=== PATIENT | female | born 1935 | race Caucasian/White ===

== ENCOUNTER → 2017-07-31 10:10 | Outpatient (CLI) | payer MEDICARE, OTHER, SELFPAY ==
--- NOTE | 2017-07-31 | DI.MG.S_ITS ---
BILATERAL DIGITAL SCREENING MAMMOGRAM 3D/2D WITH CAD POST LUMPECTOMY: 07/31/2017 CLINICAL: Routine screening. Personal history of left breast cancer. Comparison is made to exams dated: 07/30/2016 mammogram, 08/02/2015 mammogram, and 08/02/2015 mammogram - [facility]. There are scattered fibroglandular elements in both breasts. Current study was also evaluated with a Computer Aided Detection (CAD) system. There are benign vascular calcifications in both breasts. There also are post operative findings in the left breast. No significant masses, calcifications, or other findings are seen in either breast. There has been no significant interval change. IMPRESSION: BENIGN There is no mammographic evidence of malignancy. A 1 year screening mammogram is recommended. This exam was interpreted at Station ID: [id number]. NOTE: For mammograms, a report in lay terms will be sent to the patient. Approximately 15% of breast malignancies will not be visualized mammographically. In the management of a palpable breast mass, a negative mammogram must not discourage biopsy of a clinically suspicious lesion. Electronically Signed By: Mariam montanez/emerson:07/31/2017 11:05:51 letter sent: Normal Exam ACR BI-RADS Category 2: Benign Finding(s) [id number]
== END ==
PROVIDERS: Family Provider Family Medicine; PCP Family Medicine; Visit Provider Family Medicine
DX: Z12.31 Encounter for screening mammogram for malignant neoplasm of breast (principal); Z85.3 Personal history of malignant neoplasm of breast
CPT/HCPCS: 77063; 77067

== ENCOUNTER → 2018-04-21 13:58 | Outpatient (CLI) | payer MEDICARE, OTHER, SELFPAY ==
--- NOTE | 2018-04-21 | DI.RAD.S_ITS ---
PROCEDURE: XR CHEST 2V INDICATIONS: congestive heart failure TECHNIQUE: 2 views of the chest were acquired. COMPARISON: [facility], CR, XR CHEST 2 VIEWS, 01/05/2018, 12:11. FINDINGS: Surgical changes and devices: Surgical clips in the left breast. Lungs and pleura: Multiple calcified nodules bilaterally are most likely old granulomas. There are small pleural effusion bilaterally. Increased pulmonary vascularity. There is left basilar scarring. No pleural effusions or pneumothorax. Mediastinum: Mediastinal contours are normal. Heart size is normal. Bones and chest wall: No suspicious bony abnormalities. Soft tissues appear unremarkable. IMPRESSION: 1. Increased pulmonary vascularity and small pleural effusions bilaterally suggest mild CHF. 2. Left basilar scarring. 3. Suspect remote granulomatous disease. Dictated by: Eduard Ponce M.D. on 04/21/2018 at 17:07 Approved by: Eduard Ponce M.D. on 04/21/2018 at 17:09
== END ==
PROVIDERS: PCP Family Medicine; Visit Provider Family Medicine
DX: I50.9 Heart failure, unspecified (principal); J98.4 Other disorders of lung
CPT/HCPCS: 71046

== ENCOUNTER → 2018-05-14 11:32 | Outpatient (CLI) | payer MEDICARE, OTHER, SELFPAY ==
--- NOTE | 2018-05-14 | DI.RAD.S_ITS ---
PROCEDURE: XR HIP W PEL IF DONE RT 2V INDICATIONS: RIGHT HIP PAIN TECHNIQUE: 2 views of the hip were acquired. COMPARISON: [facility], , HIP 2V RIGHT, 07/29/2008, 10:37. FINDINGS: Bones: No fractures or dislocations. No suspicious bony lesions. The visualized pelvic ring appears intact. Mild osteophytic changes in the right sacroiliac joint. Soft tissues: No suspicious soft tissue calcifications or masses. IMPRESSION: No fracture or dislocation. Mild right sacroiliac joint osteoarthritis. Dictated by: Eduard Ponce M.D. on 05/14/2018 at 15:40 Approved by: Eduard Ponce M.D. on 05/14/2018 at 15:41
== END ==
PROVIDERS: PCP Family Medicine; Visit Provider Family Medicine
DX: M25.551 Pain in right hip (principal); M47.898 Other spondylosis, sacral and sacrococcygeal region
CPT/HCPCS: 73502

== ENCOUNTER → 2018-08-11 08:47 | Outpatient (CLI) | payer MEDICARE, OTHER, SELFPAY ==
--- NOTE | 2018-08-11 | DI.MG.S_ITS ---
BILATERAL DIGITAL SCREENING MAMMOGRAM 3D/2D WITH CAD POST LUMPECTOMY: 08/11/2018 CLINICAL: Routine screening. Personal history of left breast cancer. Comparison is made to exams dated: 07/31/2017 mammogram, 07/30/2016 mammogram, and 08/02/2015 mammogram - [facility]. There are scattered fibroglandular elements in both breasts. Current study was also evaluated with a Computer Aided Detection (CAD) system. There are benign post operative findings in the left breast. There also are benign vascular calcifications in both breasts. No significant masses, calcifications, or other findings are seen in either breast. There has been no significant interval change. IMPRESSION: There is no mammographic evidence of malignancy. A 1 year screening mammogram is recommended. This exam was interpreted at Station ID: [id number]. NOTE: For mammograms, a report in lay terms will be sent to the patient. Approximately 15% of breast malignancies will not be visualized mammographically. In the management of a palpable breast mass, a negative mammogram must not discourage biopsy of a clinically suspicious lesion. Electronically Signed By: Mariam montanez/emerson:08/11/2018 11:10:45 letter sent: Normal Exam ACR BI-RADS Category 2: Benign Finding(s) [id number]
== END ==
PROVIDERS: PCP Family Medicine; Visit Provider Family Medicine
DX: Z12.31 Encounter for screening mammogram for malignant neoplasm of breast (principal); Z85.3 Personal history of malignant neoplasm of breast
CPT/HCPCS: 77063; 77067

== ENCOUNTER 2018-08-22 14:33 | Emergency (ER) | payer MEDICARE, OTHER, SELFPAY ==
[2018-08-22 14:44] VITALS: BP 196/85; PULSE 58; RESP 20; TEMP 36.7; O2SAT 99; BMI 24.7
--- NOTE | 2018-08-22 14:49 | DI.RAD.S_ITS ---
PROCEDURE: XR CHEST 1V INDICATIONS: chest pain TECHNIQUE: One view of the chest was acquired. COMPARISON: [facility], CR, XR CHEST 2V, 04/21/2018, 14:04. FINDINGS: Surgical changes and devices: Surgical clips are seen overlying the left hemithorax. Lungs and pleura: Lungs are clear. No pleural effusions or pneumothorax. There may be calcified granulomas within the lungs bilaterally. Mild scarring within the lung apices is present. Mediastinum: Mediastinal contours appear normal. Heart size is normal. There is aortic atherosclerosis. Bones and chest wall: No suspicious bony lesions. Overlying soft tissues appear unremarkable. IMPRESSION: Stable chest. No acute cardiopulmonary process is suspected. Dictated by: Nitish Graham M.D. on 08/22/2018 at 14:05 Approved by: Nitish Graham M.D. on 08/22/2018 at 14:16
[2018-08-22 15:02] LABS: Add Manual Diff / Slide Review NO; Basophils Absolute Auto 0 /uL (0-100); Basophils Percent Auto 0.5 % (0-2); Eosinophils Absolute Auto 200 /uL (0-450); Eosinophils Percent Auto 1.8 % (2-4); Hematocrit 45.1 % (36-46); Hemoglobin 14.9 g/dL (12.0-16.0); Lymphocytes Absolute Auto 2400 /uL (1100-4500); Lymphocytes Percent Auto 26.3 % (25-40); Mean Corpuscular HGB Conc 33.1 % (30-36); Mean Corpuscular Volume 99.7 fL (80-100); Monocytes Absolute Auto 500 /uL (0-900); Monocytes Percent Auto 5.7 % (3-14); Neutrophils Absolute Auto 6100 /uL (1500-7000); Neutrophils Percent Auto 65.7 % (50-75); Platelet Count 206 X10^3/uL (150-400); Red Blood Cell Count 4.53 X10^6/uL (4.0-5.2); Red Cell Distribution Width 14.3 % (11.6-14.8); White Blood Cell Count 9.2 X10^3/uL (4.5-11.0)
[2018-08-22 15:09] LABS: Prothrombin Time 11.8 SECONDS (10.1-12.7)
[2018-08-22 15:11] LABS: PTT Partial Thromboplastin Tim 28 SECONDS (26.4-36.2)
[2018-08-22 15:13] LABS: Alanine Aminotransferase 21 IU/L (9-52); Albumin 4.1 g/dL (3.5-5.0); Albumin Globulin Ratio 1.4 (1.0-2.8); Alkaline Phosphatase 83 U/L (38-126); Aspartate Aminotransferase 19 IU/L (14-36); BUN Creatinine Ratio 22.9 (6-22); Bilirubin Total 0.6 mg/dL (0.2-1.3); Blood Urea Nitrogen 16 mg/dL (7-17); Carbon Dioxide 31 mmol/L (22-32); Chloride 102 mmol/L (98-107); Creatine Kinase < 20 U/L (30-135); Estimated Glomerular Filt Rate > 60.0 mL/min (>60); Glucose 99 mg/dL (80-110); HEMOLYSIS < 15 (0-50); Lipase 174 U/L (23-300); Potassium 3.9 mmol/L (3.4-5.1); Sodium 142 mmol/L (137-145); Total Protein 7.1 g/dL (6.3-8.2)
[2018-08-22 15:25] LABS: Troponin I < 0.012 ng/mL (0.01-0.034)
--- NOTE | 2018-08-22 16:04 | ED.CHESTPAIN ---
HPI - Chest Pain General Chief Complaint: Chest Pain Stated Complaint: Pain under ribs thru to back Time Seen by Provider: 08/22/18 16:00 Source: patient Mode of arrival: ambulatory Limitations: no limitations History of Present Illness HPI narrative: Patient is a 83-year-old female who presents with chest pain ongoing for about the last 4 days it seems to be in her epigastric area radiating straight through to her back. She actually was seen by her member of parliament while she was having this pain. She says nothing has made it get better or worse. It is fairly constant. She has denies any nausea or vomiting. She has no shortness of. She was given a shot the walk-in clinic she is not sure what it was she says that seems to have helped some. MD complaint: chest pain Onset (ago): day(s) (4) Duration: constant Pain location: epigastric Quality: sharp Pain radiation: back Relieving factors: nothing Exacerbating factors: nothing Related Data Previous Rx's Medication Instructions Recorded omeprazole 40 mg PO DAILY #14 cap 08/22/18 Allergies Allergy/AdvReac Type Severity Reaction Status Date / Time No Known Drug Allergies Allergy Verified 08/22/18 16:45 Review of Systems Review of Systems GENERAL: Denies chills, fatigue, malaise, fever, sweats, travel HEENT: Denies sinus pain, ear pain, sore throat, difficulty swallowing, neck pain RESPIRATORY: Denies dyspnea, cough, wheezing, hemoptysis, sputum. CARDIOVASCULAR: See HPI GASTROINTESTINAL: Denies nausea, vomiting, abdominal pain, diarrhea, constipation, melena. : Denies dysuria, frequency, incontinence, hematuria, urinary retention, flank pain. MUSCULOSKELETAL: Denies weakness, joint pain, or bony pain SKIN: No rash, no erythema, no pruritus NEUROLOGIC: Denies weakness, dizziness, headache, numbness, change in speech, confusion PSYCHIATRIC: No concerning psychosocial issues. 12 point review of systems is negative except for those stated above and HPI [facility] Medical History Atrial fibrillation (Acute) Social History Smoking Status: Former smoker Social History Smoking Status: Former smoker Exam Initial Vital Signs Initial Vital Signs: Vital Signs Temperature 98.1 F 08/22/18 14:44 Pulse Rate 58 L 08/22/18 14:44 Respiratory Rate 20 08/22/18 14:44 Blood Pressure 196/85 H 08/22/18 14:44 Pulse Oximetry 99 08/22/18 14:44 GENERAL: Alert pleasant well-appearing elderly female no acute distress HEENT: Head atraumatic,EOMI, pupils reactive, face symmetric, moist mucous membranes CARDIOVASCULAR: Regular rate and rhythm without murmurs, rubs or gallops. RESPIRATORY: Breath sounds equal bilaterally, no wheezes rales or rhonchi. ABDOMEN: Soft, epigastric tenderness no right upper quadrant pain negative Laurent sign no guarding no rebound no distension : No CVA tenderness EXTREMITIES: Normal range of motion, no clubbing or edema. Neurovascularly intact NEUROLOGICAL: Alert and oriented x4.Normal gait and speech. Cranial nerves II through XII grossly intact. SKIN: Warm, dry, no laceration, no petechiae, no rashes or lesions. Course Orders Ordered: ED Orders 08/22/18 14:37 EKG-12 Lead Stat 08/22/18 14:49 XR chest 1V Stat 08/22/18 14:55 Complete Blood Count AUTO DIFF Stat Comprehensive Metabolic Panel Stat Lipase Stat Partial Thromboplastin Time Stat Prothrombin Time INR Stat Troponin & CK Cardiac Panel Stat Discontinued Medications Al Hydrox/Mg Hydrox/Simethicone 20 ml/ Lidocaine HCl 15 ml 0 ml PO NOW ONE Stop: 08/22/18 16:28 Last Admin: 08/22/18 17:03 Dose: 35 ml Vital Signs - 8 hr 08/22/18 14:44 08/22/18 16:30 08/22/18 17:00 Temperature 98.1 F Pulse Rate 58 L 60 54 L Respiratory Rate 20 17 19 Blood Pressure 196/85 H Blood Pressure [Right Arm] 163/66 H 174/66 H Pulse Oximetry 99 99 100 MDM - Chest Pain Lab Data Attestation: I reviewed the patient's lab results. Result diagrams: 08/22/18 14:55 08/22/18 14:55 Lab Results 08/22/18 08/22/18 08/22/18 Range/Units 14:55 14:55 14:55 WBC 9.2 (4.5-11.0) X10^3/uL RBC 4.53 (4.0-5.2) X10^6/uL Hgb 14.9 (12.0-16.0) g/dL Hct 45.1 (36-46) % MCV 99.7 (80-100) fL MCH 33.0 (26-34) PG MCHC 33.1 (30-36) % RDW 14.3 (11.6-14.8) % Plt Count 206 (150-400) X10^3/uL Neut % (Auto) 65.7 (50-75) % Lymph % (Auto) 26.3 (25-40) % [place] % (Auto) 5.7 (3-14) % Eos % (Auto) 1.8 L (2-4) % Baso % (Auto) 0.5 (0-2) % Neut # (Auto) 6100 (4265-7696) /uL Lymph # (Auto) 2400 (6926-8709) /uL [place] # (Auto) 500 (0-900) /uL Eos # (Auto) 200 (0-450) /uL Baso # (Auto) 0 (0-100) /uL PT 11.8 (10.1-12.7) SECONDS INR 1.0 (0.9-1.3) APTT 28 (26.4-36.2) SECONDS Sodium 142 (137-145) mmol/L Potassium 3.9 (3.4-5.1) mmol/L Chloride 102 (98-107) mmol/L Carbon Dioxide 31 (22-32) mmol/L BUN 16 (7-17) mg/dL Creatinine 0.70 (0.52-1.04) mg/dL Estimated GFR > 60.0 (>60) mL/min BUN/Creatinine Ratio 22.9 H (6-22) Glucose 99 (80-110) mg/dL Calcium 9.0 (8.4-10.2) mg/dL Total Bilirubin 0.6 (0.2-1.3) mg/dL AST 19 (14-36) IU/L ALT 21 (9-52) IU/L Alkaline Phosphatase 83 (38-126) U/L Total Creatine Kinase < 20 L (30-135) U/L CK-MB (CK-2) TNP CK-MB (CK-2) Rel Index TNP Troponin I < 0.012 (0.01-0.034) ng/mL Total Protein 7.1 (6.3-8.2) g/dL Albumin 4.1 (3.5-5.0) g/dL Globulin 3.0 (1.7-4.1) g/dL Albumin/Globulin Ratio 1.4 (1.0-2.8) Lipase 174 (23-300) U/L Imaging Data Chest x-ray: Radiologist's impression: PROCEDURE: XR CHEST 1V INDICATIONS: chest pain TECHNIQUE: One view of the chest was acquired. COMPARISON: [facility], , XR CHEST 2V, 04/21/2018, 14:04. FINDINGS: Surgical changes and devices: Surgical clips are seen overlying the left hemithorax. Lungs and pleura: Lungs are clear. No pleural effusions or pneumothorax. There may be calcified granulomas within the lungs bilaterally. Mild scarring within the lung apices is present. Mediastinum: Mediastinal contours appear normal. Heart size is normal. There is aortic atherosclerosis. Bones and chest wall: No suspicious bony lesions. Overlying soft tissues appear unremarkable. IMPRESSION: Stable chest. No acute cardiopulmonary process is suspected. Dictated by: Nitish Graham M.D. on 08/22/2018 at 14:05 ECG Data Attestation: I personally reviewed and interpreted this ECG as follows: Prior ECG tracings: not available for review Interpretation: Sinus rhythm rate 67 year interval [address] changes low voltage noted no priors to compare MDM Narrative Medical decision making narrative: Patient has been having pain ongoing for the last 4 days. There is no migratory pain to suggest dissection. Nothing makes it better or worse. She was given a GI cocktail he says it only made her tongue numb. At this time she does not have any signs or symptoms of pancreatitis I do not think cholecystitis. Liver enzymes and bilirubin are normal and she really does not have right upper quadrant pain. Troponin and EKG are negative. Discharge Plan Departure Patient Disposition: Home Clinical Impression: Atypical chest pain Gastric ulcer Qualifiers: Gastric ulcer chronicity: acute Gastric ulcer complication status: without hemorrhage or perforation Qualified Code(s): K25.3 - Acute gastric ulcer without hemorrhage or perforation Discharge Date/Time: 08/22/18 17:30 Interventions: ED Discharge Assessment Last Done: 08/22/18 17:30 Instructions: DI for Atypical Chest Pain, DI for Gastric Ulcer Activity Restrictions/Additional Instructions: *You have been diagnosed with atypical chest pain, possible gastric ulcer *What to do: At this time recommend follow-up with your member of parliament and he may require a stress test. This may also be possible gastric ulcer. *Continue to take medications as directed Omeprazole once daily 30 minutes before eating *Follow up with your primary care provider in 2-3 days *Return to ER if you should have worsening pain shortness of breath palpitations nausea or any new, worsening or concerning symptoms Prescriptions: New omeprazole 40 mg capsule,delayed release(DR/EC) 40 mg PO DAILY Qty: 14 RF: 0 Referrals: Bishop Hansen MD [Primary Care Provider] -
--- NOTE | 2018-08-22 16:07 | ED_ITS ---
HPI - Chest Pain General Chief Complaint: Chest Pain Stated Complaint: Pain under ribs thru to back Time Seen by Provider: 08/22/18 16:00 Source: patient Mode of arrival: ambulatory Limitations: no limitations History of Present Illness HPI narrative: Patient is a 83-year-old female who presents with chest pain ongo ing for about the last 4 days it seems to be in her epigastric area radiating straight through to her back. She actually was seen by her navy material inspector while she was having this pain. She says nothing has made it get better or worse. It is fairly constant. She has denies any nausea or vomiting. She has no shortness of. She was given a shot the walk-in clinic she is not sure what it was she says that seems to have helped some. MD complaint: chest pain Onset (ago): day(s) (4) Duration: constant Pain location: epigastric Quality: sharp Pain radiation: back Relieving factors: nothing Exacerbating factors: nothing Related Data Previous Rx's Medication Instructions Recorded omeprazole 40 mg PO DAILY #14 cap 08/22/18 Allergies Allergy/AdvReac Type Severity Reaction Status Date / Time No Known Drug Allergies Allergy Verified 08/22/18 16:45 Review of Systems Review of Systems GENERAL: Denies chills, fatigue, malaise, fever, sweats, travel HEENT: Denies sinus pain, ear pain, sore throat, difficulty swallowing, neck pain RESPIRATORY: Denies dyspnea, cough, wheezing, hemoptysis, sputum. CARDIOVASCULAR: See HPI GASTROINTESTINAL: Denies nausea, vomiting, abdominal pain, diarrhea, constipation, melena. : Denies dysuria, frequency, incontinence, hematuria, urinary retention, flank pain. MUSCULOSKELETAL: Denies weakness, joint pain, or bony pain SKIN: No rash, no erythema, no pruritus NEUROLOGIC: Denies weakness, dizziness, headache, numbness, change in speech, confusion PSYCHIATRIC: No concerning psychosocial issues. 12 point review of systems is negative except for those stated above and HPI [facility] Medical History Atrial fibrillation (Acute) Social History Smoking Status: Former smoker Social History Smoking Status: Former smoker Exam Initial Vital Signs Initial Vital Signs: Vital Signs Temperature 98.1 F 08/22/18 14:44 Pulse Rate 58 L 08/22/18 14:44 Respiratory Rate 20 08/22/18 14:44 Blood Pressure 196/85 H 08/22/18 14:44 Pulse Oximetry 99 08/22/18 14:44 GENERAL: Alert pleasant well-appearing elderly female no acute distress HEENT: Head atraumatic,EOMI, pupils reactive, face symmetric, moist mucous membranes CARDIOVASCULAR: Regular rate and rhythm without murmurs, rubs or gallops. RESPIRATORY: Breath sounds equal bilaterally, no wheezes rales or rhonchi. ABDOMEN: Soft, epigastric tenderness no right upper quadrant pain negative Laurent sign no guarding no rebound no distension : No CVA tenderness EXTREMITIES: Normal range of motion, no clubbing or edema. Neurovascularly intact NEUROLOGICAL: Alert and oriented x4.Normal gait and speech. Cranial nerves II through XII grossly intact. SKIN: Warm, dry, no laceration, no petechiae, no rashes or lesions. Course Orders Ordered: ED Orders 08/22/18 14:37 EKG-12 Lead Stat 08/22/18 14:49 XR chest 1V Stat 08/22/18 14:55 Complete Blood Count AUTO DIFF Stat Comprehensive Metabolic Panel Stat Lipase Stat Partial Thromboplastin Time Stat Prothrombin Time INR Stat Troponin & CK Cardiac Panel Stat Discontinued Medications Al Hydrox/Mg Hydrox/Simethicone 20 ml/ Lidocaine HCl 15 ml 0 ml PO NOW ONE Stop: 08/22/18 16:28 Last Admin: 08/22/18 17:03 Dose: 35 ml Vital Signs - 8 hr 08/22/18 14:44 08/22/18 16:30 08/22/18 17:00 Temperature 98.1 F Pulse Rate 58 L 60 54 L Respiratory Rate 20 17 19 Blood Pressure 196/85 H Blood Pressure [Right Arm] 163/66 H 174/66 H Pulse Oximetry 99 99 100 MDM - Chest Pain Lab Data Attestation: I reviewed the patient's lab results. Result diagrams: 08/22/18 14:55 08/22/18 14:55 Lab Results 08/22/18 08/22/18 08/22/18 Range/Units 14:55 14:55 14:55 WBC 9.2 (4.5-11.0) X10^3/uL RBC 4.53 (4.0-5.2) X10^6/uL Hgb 14.9 (12.0-16.0) g/dL Hct 45.1 (36-46) % MCV 99.7 (80-100) fL MCH 33.0 (26-34) PG MCHC 33.1 (30-36) % RDW 14.3 (11.6-14.8) % Plt Count 206 (150-400) X10^3/uL Neut % (Auto) 65.7 (50-75) % Lymph % (Auto) 26.3 (25-40) % [place] % (Auto) 5.7 (3-14) % Eos % (Auto) 1.8 L (2-4) % Baso % (Auto) 0.5 (0-2) % Neut # (Auto) 6100 (9314-2630) /uL Lymph # (Auto) 2400 (2313-7310) /uL [place] # (Auto) 500 (0-900) /uL Eos # (Auto) 200 (0-450) /uL Baso # (Auto) 0 (0-100) /uL PT 11.8 (10.1-12.7) SECONDS INR 1.0 (0.9-1.3) APTT 28 (26.4-36.2) SECONDS Sodium 142 (137-145) mmol/L Potassium 3.9 (3.4-5.1) mmol/L Chloride 102 (98-107) mmol/L Carbon Dioxide 31 (22-32) mmol/L BUN 16 (7-17) mg/dL Creatinine 0.70 (0.52-1.04) mg/dL Estimated GFR > 60.0 (>60) mL/min BUN/Creatinine Ratio 22.9 H (6-22) Glucose 99 (80-110) mg/dL Calcium 9.0 (8.4-10.2) mg/dL Total Bilirubin 0.6 (0.2-1.3) mg/dL AST 19 (14-36) IU/L ALT 21 (9-52) IU/L Alkaline Phosphatase 83 (38-126) U/L Total Creatine Kinase < 20 L (30-135) U/L CK-MB (CK-2) TNP CK-MB (CK-2) Rel Index TNP Troponin I < 0.012 (0.01-0.034) ng/mL Total Protein 7.1 (6.3-8.2) g/dL Albumin 4.1 (3.5-5.0) g/dL Globulin 3.0 (1.7-4.1) g/dL Albumin/Globulin Ratio 1.4 (1.0-2.8) Lipase 174 (23-300) U/L Imaging Data Chest x-ray: Radiologist's impression: PROCEDURE: XR CHEST 1V INDICATIONS: chest pain TECHNIQUE: One view of the chest was acquired. COMPARISON: [facility], , XR CHEST 2V, 04/21/2018, 14:04. FINDINGS: Surgical changes and devices: Surgical clips are seen overlying the left he mithorax. Lungs and pleura: Lungs are clear. No pleural effusions or pneumothorax. There may be calcified granulomas within the lungs bilaterally. Mild scarring within the lung apices is present. Mediastinum: Mediastinal contours appear normal. Heart size is normal. There is aortic atherosclerosis. Bones and chest wall: No suspicious bony lesions. Overlying soft tissues appear unremarkable. IMPRESSION: Stable chest. No acute cardiopulmonary process is suspected. Dictated by: Nitish Graham M.D. on 08/22/2018 at 14:05 ECG Data Attestation: I personally reviewed and interpreted this ECG as follows: Prior ECG tracings: not available for review Interpretation: Sinus rhythm rate 67 year interval [address] changes low voltage noted no priors to compare MDM Narrative Medical decision making narrative: Patient has been having pain ongoing for the last 4 days. There is no migratory pain to suggest dissection. Nothing makes it better or worse. She was given a GI cocktail he says it only made her tongue numb. At this time she does not have any signs or symptoms of pancreatitis I do not think cholecystitis. Liver enzymes and bilirubin are normal and she really does not have right upper quadrant pain. Troponin and EKG are negative. Discharge Plan Departure Patient Disposition: Home Clinical Impression: Atypical chest pain Gastric ulcer Qualifiers: Gastric ulcer chronicity: acute Gastric ulcer complication status: without hemorrhage or perforation Qualified Code(s): K25.3 - Acute gastric ulcer without hemorrhage or perforation Discharge Date/Time: 08/22/18 17:30 Interventions: ED Discharge Assessment Last Done: 08/22/18 17:30 Instructions: DI for Atypical Chest Pain, DI for Gastric Ulcer Activity Restrictions/Additional Instructions: *You have been diagnosed with atypical chest pain, possible gastric ulcer *What to do: At this time recommend follow-up with your navy material inspector and he may require a stress test. This may also be possible gastric ulcer. *Continue to take medications as directed Omeprazole once daily 30 minutes before eating *Follow up with your primary care provider in 2-3 days *Return to ER if you should have worsening pain shortness of breath palpitations nausea or any new, worsening or concerning symptoms Prescriptions: New omeprazole 40 mg capsule,delayed release(DR/EC) 40 mg PO DAILY Qty: 14 RF: 0 Referrals: Bishop Hansen MD [Primary Care Provider] -
[2018-08-22 16:30] VITALS: BP 163/66; PULSE 60; RESP 17; O2SAT 99
[2018-08-22 17:00] VITALS: BP 174/66; PULSE 54; RESP 19; O2SAT 100
[2018-08-22] MEDS: MAG HYDROX/ALUMINUM/SIMETH SUS 20 ML, LIDOCAINE VISCOUS 2% 15 ML PO (17:03)
== END 2018-08-22 17:30 | disposition home or self-care (01) ==
PROVIDERS: Emergency Provider Emergency Medicine; PCP Family Medicine
DX: R07.89 Other chest pain (principal); K25.3 Acute gastric ulcer without hemorrhage or perforation
CPT/HCPCS: 36415; 71045; 80053; 82550; 83690; 84484; 85025; 85610; 85730; 93005; 93010; 99283; 99285

== ENCOUNTER 2018-08-23 07:57 | Emergency (ER) | payer MEDICARE, OTHER, SELFPAY ==
[2018-08-23 08:09] VITALS: BP 182/85; PULSE 65; RESP 14; TEMP 36.4; O2SAT 100; BMI 24.7
--- NOTE | 2018-08-23 09:22 | ED.ABDPAIN ---
HPI - Abdominal Pain General Chief Complaint: Abdominal Pain Stated Complaint: Pain in back Time Seen by Provider: 08/23/18 08:57 Source: patient and family Mode of arrival: ambulatory Limitations: no limitations History of Present Illness HPI narrative: This is an 83-year-old male female who comes to the emergency department with complaint of back pain. Patient states that it is kind of in the thoracic region, she states that she does have pain sort of in the anterior abdomen but sort of wraps around through the ribs. Patient states she did have a fall about a month ago. She states that she had quite a bit of pain at that time although it felt different. This started about a week ago, it has been slowly increasing in pain. She was seen at a walk-in clinic yesterday received Toradol and felt better, she was seen here in the emergency department had cardiac workup which was negative and return home. Patient states that her pain has continued. She states no fevers, no chills, no shortness of breath. She describes it more of epigastric kind of radiating around. Although she states that it seems to be coming more from the back and coming to the front. She states yesterday seemed more in the front and going to the back. Patient denies any issues with nausea or vomiting, no issues with bowel movements or urination. She does take Eliquis for atrial fibrillation, she denies any other cardiac issues. She does take a Lasix intermittently. She states she is allergic to naproxen and gets red but she has had Motrin without issues. She has had her appendix as well as . She denies any other surgeries. Remote history of tobacco use 40 years ago, no alcohol, no illicit. Related Data Previous Rx's Medication Instructions Recorded omeprazole 40 mg PO DAILY #14 cap 08/22/18 docusate sodium [Colace] 100 mg PO BID PRN #20 cap 08/23/18 oxycodone 5 mg PO Q4-6H PRN #14 tab 08/23/18 Allergies Allergy/AdvReac Type Severity Reaction Status Date / Time naproxen Allergy Verified 08/23/18 08:09 Review of Systems Review of Systems ROS Unobtainable: All systems reviewed & are unremarkable except as noted in HPI and below Constitutional Denies chills, Denies fever(s), Denies lethargy and Denies weakness Cardiovascular Denies chest pain, Denies syncope, Denies rapid heart rate, Denies irregular heart rhythm, Denies lightheadedness, Denies palpitations, Denies dyspnea, Denies dyspnea on exertion and Denies orthopnea Respiratory Denies chest congestion, Denies cough, Denies hemoptysis, Denies dyspnea, Denies dyspnea on exertion and Denies wheezing Gastrointestinal Gastrointestinal: Reports abdominal pain (Back pain radiating different), Denies melena, Denies hematochezia, Denies change in bowel habits, Denies constipation, Denies diarrhea, Denies nausea and Denies vomiting Genitourinary Denies hematuria, Reports urinary frequency, Denies dysuria, Denies flank pain, Denies urinary incontinence and Denies urinary urgency Musculoskeletal Reports abnormal gait (Second pain), Reports back pain, Reports limited range of motion, Denies numbness, Denies radiating pain into limb and Denies tingling Integumentary/Breasts Denies rash and Denies unusual bruising Neurologic Reports abnormal gait (Second pain), Denies syncope, Denies numbness, Denies tingling and Denies weakness Endocrine Denies palpitations Allergic/Immunologic Denies wheezing [facility] Medical History (Updated 08/23/18 @ 11:36 by Roselyn Aguiar DO) Atrial fibrillation (Acute) Surgical History (Updated 08/23/18 @ 09:36 by Roselyn Aguiar DO) Hx of appendectomy (Chronic) Social History (Updated 08/23/18 @ 09:36 by Roselyn Aguiar DO) marital status: Smoking Status: Former smoker alcohol intake: never substance use type: does not use Social History (Updated 08/23/18 @ 09:36 by Roselyn Aguiar DO) marital status: Smoking Status: Former smoker alcohol intake: never substance use type: does not use Exam Narrative Exam Narrative: GENERAL: Alert and oriented x three, well-nourished elderly female in moderate distress. HEENT: Head normocephalic, atraumatic, EOMI, pupils reactive, face symmetric, moist mucous membranes NECK: Supple, full range of motion CARDIOVASCULAR: Regular rate and rhythm without murmurs, rubs or gallops. RESPIRATORY: Breath sounds equal bilaterally, no wheezes rales or rhonchi. ABDOMEN: Soft, nontender. Normoactive bowel sounds all 4 quadrants. No guarding or rebound, rigidity, no mass BACK: No cervical or lumbar vertebral point tenderness. Patient is tender over T5/6, no crepitus. Patient has decreased range of motion. Patient's gait is intact. Rectal exam is [normal sphincter tone/decreased tone/no tone/deferred or refused]. Muscle strength is 5/5 in lower extremities, Dorsalis pedis and tibialis pulses are 2+ and lower extremities. Sensation is intact in the lower extremities. Patient is quite uncomfortable with any sort of movement or rotation. : No CVA tenderness EXTREMITIES: Normal range of motion, no clubbing or edema. Neurovascularly intact NEUROLOGICAL: Cranial nerves II through XII grossly intact. Moving all extremities SKIN: Warm, dry, no petechiae, no rashes or lesions. Initial Vital Signs Initial Vital Signs: Vital Signs Temperature 97.6 F 08/23/18 08:09 Pulse Rate 65 08/23/18 08:09 Respiratory Rate 14 08/23/18 08:09 Blood Pressure 182/85 H 08/23/18 08:09 Pulse Oximetry 100 08/23/18 08:09 Course Orders Ordered: ED Orders 08/23/18 09:15 Urine Microscopic Stat 08/23/18 09:32 CT thoracic spine wo con Stat 08/23/18 09:38 EKG-12 Lead Stat 08/23/18 09:45 Complete Blood Count AUTO DIFF Stat Comprehensive Metabolic Panel Stat Lipase Stat Troponin & CK Cardiac Panel Stat Discontinued Medications Sodium Chloride (Normal Saline 0.9%) 1,000 mls @ 1,000 mls/hr IV BOLUS ONE Stop: 08/23/18 10:21 Last Admin: 08/23/18 11:51 Dose: Not Given Ketorolac Tromethamine (Toradol) 15 mg IV NOW ONE Stop: 08/23/18 09:33 Last Admin: 08/23/18 09:57 Dose: Not Given Ketorolac Tromethamine (Toradol) 30 mg IM NOW ONE Stop: 08/23/18 09:56 Last Admin: 08/23/18 10:03 Dose: Not Given Ketorolac Tromethamine (Toradol) 15 mg IM NOW ONE Stop: 08/23/18 09:59 Last Admin: 08/23/18 10:00 Dose: 15 mg Vital Signs - 8 hr 08/23/18 08:09 08/23/18 11:43 08/23/18 11:51 Temperature 97.6 F Pulse Rate 65 55 L 56 L Respiratory Rate 14 16 15 Blood Pressure 182/85 H 170/57 H Blood Pressure [Right Arm] 170/57 H Pulse Oximetry 100 90 L 100 MDM - Abdominal Pain Lab Data Attestation: I reviewed the patient's lab results. Result diagrams: 08/23/18 09:45 08/23/18 09:45 Lab Results 08/23/18 08/23/18 08/23/18 Range/Units 09:15 09:45 09:45 WBC 9.5 (4.5-11.0) X10^3/uL RBC 4.57 (4.0-5.2) X10^6/uL Hgb 15.4 (12.0-16.0) g/dL Hct 45.6 (36-46) % MCV 99.7 (80-100) fL MCH 33.6 (26-34) PG MCHC 33.7 (30-36) % RDW 14.0 (11.6-14.8) % Plt Count 204 (150-400) X10^3/uL Neut % (Auto) 58.9 (50-75) % Lymph % (Auto) 32.1 (25-40) % [place] % (Auto) 6.0 (3-14) % Eos % (Auto) 2.2 (2-4) % Baso % (Auto) 0.8 (0-2) % Neut # (Auto) 5600 (8472-7530) /uL Lymph # (Auto) 3000 (2964-4318) /uL [place] # (Auto) 600 (0-900) /uL Eos # (Auto) 200 (0-450) /uL Baso # (Auto) 100 (0-100) /uL Sodium 142 (137-145) mmol/L Potassium 5.1 D (3.4-5.1) mmol/L Chloride 104 (98-107) mmol/L Carbon Dioxide 27 (22-32) mmol/L BUN 22 H (7-17) mg/dL Creatinine 0.70 (0.52-1.04) mg/dL Estimated GFR > 60.0 (>60) mL/min BUN/Creatinine Ratio 31.4 H (6-22) Glucose 89 (80-110) mg/dL Calcium 9.4 (8.4-10.2) mg/dL Total Bilirubin 1.0 (0.2-1.3) mg/dL AST 32 (14-36) IU/L ALT 13 (9-52) IU/L Alkaline Phosphatase 76 (38-126) U/L Total Creatine Kinase (30-135) U/L CK-MB (CK-2) CK-MB (CK-2) Rel Index Troponin I (0.01-0.034) ng/mL Total Protein 7.4 (6.3-8.2) g/dL Albumin 4.3 (3.5-5.0) g/dL Globulin 3.1 (1.7-4.1) g/dL Albumin/Globulin Ratio 1.4 (1.0-2.8) Lipase 229 (23-300) U/L Urine RBC 1-5/hpf (0-5/HPF) Urine WBC 0-1/hpf (0-5/HPF) Amorphous Sediment 1+ Urine Bacteria Few (2-10) H (None) Ur Culture Indicated? Cult not indicated 08/23/18 Range/Units 09:45 WBC (4.5-11.0) X10^3/uL RBC (4.0-5.2) X10^6/uL Hgb (12.0-16.0) g/dL Hct (36-46) % MCV (80-100) fL MCH (26-34) PG MCHC (30-36) % RDW (11.6-14.8) % Plt Count (150-400) X10^3/uL Neut % (Auto) (50-75) % Lymph % (Auto) (25-40) % [place] % (Auto) (3-14) % Eos % (Auto) (2-4) % Baso % (Auto) (0-2) % Neut # (Auto) (2128-2972) /uL Lymph # (Auto) (9280-0111) /uL [place] # (Auto) (0-900) /uL Eos # (Auto) (0-450) /uL Baso # (Auto) (0-100) /uL Sodium (137-145) mmol/L Potassium (3.4-5.1) mmol/L Chloride (98-107) mmol/L Carbon Dioxide (22-32) mmol/L BUN (7-17) mg/dL Creatinine (0.52-1.04) mg/dL Estimated GFR (>60) mL/min BUN/Creatinine Ratio (6-22) Glucose (80-110) mg/dL Calcium (8.4-10.2) mg/dL Total Bilirubin (0.2-1.3) mg/dL AST (14-36) IU/L ALT (9-52) IU/L Alkaline Phosphatase (38-126) U/L Total Creatine Kinase 33 (30-135) U/L CK-MB (CK-2) TNP CK-MB (CK-2) Rel Index TNP Troponin I < 0.012 (0.01-0.034) ng/mL Total Protein (6.3-8.2) g/dL Albumin (3.5-5.0) g/dL Globulin (1.7-4.1) g/dL Albumin/Globulin Ratio (1.0-2.8) Lipase (23-300) U/L Urine RBC (0-5/HPF) Urine WBC (0-5/HPF) Amorphous Sediment Urine Bacteria (None) Ur Culture Indicated? Point of care testing: Urine Dip Bedside Urine Glucose Negative Bedside Urine Bilirubin - Negative Bedside Urine Ketone - Negative Urine Specific [place] 1.010 Bedside Urine Occult Blood +/- Bedside Urine pH 8.0 Bedside Urine Protein - Negative Bedside Urine Nitrite - Negative Bedside Urine Leukocytes - Negative Esterase Imaging Data CT T-spine: Radiologist's impression: 17 DO Estuardo Benjamin Patient Imaging Aletha Price 83 F 1935 ACTIVITY DATE EXAM STATUS AUTHOR 08/23/18 09:32 [place] [id number] CT Scan Report Signed Patient: Aletha Price FMR#: [id number] : 1935cct:[id number] Age/Sex: 83 / FDate of Service: 08/23/18 Loc: ED Accession Number: [id number] Procedure: CT thoracic spine wo con Ordering Provider: Roselyn Aguiar D.O. PROCEDURE: CT THORACIC SPINE WO CON INDICATIONS: pain T5/6 with palpation and movement. fall 1 month ago. TECHNIQUE: Noncontrast 3 mm thick sections acquired through the region of interest in the thoracic spine. Sagittal and coronal reformats were then constructed. For radiation dose reduction, the following was used: automated exposure control. COMPARISON: [facility], CR, XR CHEST 2V, 04/21/2018, 14:04. FINDINGS: Image quality: Diagnostic. Bones: The cervicothoracic and thoracolumbar junctions are well visualized and the alignment through these regions is within normal limits. There is an acute compression deformity involving the T7 vertebral body with increased density identified along the inferior endplate of mild buckling of the anterior cortex. No retropulsion is evident. There is approximately 25 % anterior vertical height loss. No additional compression deformities are evident. The remainder of the vertebral body heights are well-maintained. No suspicious osseous lesions are identified. Mild degenerative changes of the thoracic spine are noted. Incidental note is made of a subacute appearing fracture involving the medial aspect of the right clavicle at the sternoclavicular joint (image 23, series 2). Periosteal reaction is evident. Soft tissues: No paravertebral masses or hematomas. Visualized posteromedial lungs appear clear. Calcified granulomas are evident within the bilateral lung apices. There is aortic atherosclerosis. There also are calcified granulomas within the spleen and liver. IMPRESSION: 1. T7 compression fracture with mild anterior vertical height loss. No retropulsion. 2. Subacute/healing proximal right clavicle fracture. Dictated by: Nitish Graham M.D. on 08/23/2018 at 10:05 Approved by: Nitish Graham M.D. on 08/23/2018 at 10:09 ECG Data Attestation: I personally reviewed and interpreted this ECG as follows: Prior ECG tracings: available for review Interpretation: Sinus bradycardia rate of 54 P are 182 QRS 88 QTC of 445. No ST elevation or depression appreciated appears similar to prior EKG from yesterday. Q-wave in 3 and AVF. MDM Narrative Medical decision making narrative: Patient is tender to palpation on exam, C-spine CT was ordered, shows a T7 fracture. Patient was also complaining of some pain anteriorly and was hypertensive on arrival so cardiac enzymes as well as EKG and abdominal labs for evaluation for pancreatitis, cardiac causes, pulmonary or bony causes were included. Patient does have a remote fall about a month ago. This may have been the nidus for her pain. Plan for pain control, walker and follow up with primary care. Patient and are comfortable with this plan. Discharge Plan Departure Patient Disposition: Home Clinical Impression: Compression fracture of T7 vertebra Discharge Date/Time: 08/23/18 11:52 Interventions: ED Discharge Assessment Last Done: 08/23/18 11:51 Instructions: Vertebral Compression Fracture Activity Restrictions/Additional Instructions: Follow up with primary care and/or orthopedic surgery for follow-up. Call for an appointment. Take 1000 mg every 8 hours as needed for pain. You have also been prescribed narcotic pain medication for breakthrough pain, take this as needed. Take pain medication as prescribed this medication can make you sleepy, do not drive, perform hazardous activities or make any major decisions while taking this medication. You may take ibuprofen up to 800 mg every 8 hours as needed with this medication. I also recommend taking a stool softener while you are taking narcotics. Return to the emergency department for fevers greater 100.4 F, new numbness, weakness, loss of sensation, rapidly worsening pain, new shortness of breath, chest pressure or other new or concerning symptoms. Prescriptions: New docusate sodium [Colace] 100 mg capsule 100 mg PO BID PRN (Reason: constipation) Qty: 20 RF: 0 oxycodone 5 mg tablet 5 mg PO Q4-6H PRN (Reason: pain) Qty: 14 RF: 0 No Action omeprazole 40 mg capsule,delayed release(DR/EC) 40 mg PO DAILY Qty: 14 RF: 0 Referrals: Bishop Hansen MD [Primary Care Provider] - Cale Ortiz MD [Physician] -
--- NOTE | 2018-08-23 09:32 | DI.CT.S_ITS ---
PROCEDURE: CT THORACIC SPINE WO CON INDICATIONS: pain T5/6 with palpation and movement. fall 1 month ago. TECHNIQUE: Noncontrast 3 mm thick sections acquired through the region of interest in the thoracic spine. Sagittal and coronal reformats were then constructed. For radiation dose reduction, the following was used: automated exposure control. COMPARISON: [facility], CR, XR CHEST 2V, 04/21/2018, 14:04. FINDINGS: Image quality: Diagnostic. Bones: The cervicothoracic and thoracolumbar junctions are well visualized and the alignment through these regions is within normal limits. There is an acute compression deformity involving the T7 vertebral body with increased density identified along the inferior endplate of mild buckling of the anterior cortex. No retropulsion is evident. There is approximately 25 % anterior vertical height loss. No additional compression deformities are evident. The remainder of the vertebral body heights are well-maintained. No suspicious osseous lesions are identified. Mild degenerative changes of the thoracic spine are noted. Incidental note is made of a subacute appearing fracture involving the medial aspect of the right clavicle at the sternoclavicular joint (image 23, series 2). Periosteal reaction is evident. Soft tissues: No paravertebral masses or hematomas. Visualized posteromedial lungs appear clear. Calcified granulomas are evident within the bilateral lung apices. There is aortic atherosclerosis. There also are calcified granulomas within the spleen and liver. IMPRESSION: 1. T7 compression fracture with mild anterior vertical height loss. No retropulsion. 2. Subacute/healing proximal right clavicle fracture. Dictated by: Nitish Graham M.D. on 08/23/2018 at 10:05 Approved by: Nitish Graham M.D. on 08/23/2018 at 10:09
--- NOTE | 2018-08-23 09:38 | ED_ITS ---
HPI - Abdominal Pain General Chief Complaint: Abdominal Pain Stated Complaint: Pain in back Time Seen by Provider: 08/23/18 08:57 Source: patient and family Mode of arrival: ambulatory Limitations: no limitations History of Present Illness HPI narrative: This is an 83-year-old male female who comes to the emergency department with complaint of back pain. Patient states that it is kind of in the thoracic region, she states that she does have pain sort of in the anterior abdomen but sort of wraps around through the ribs. Patient states she did have a fall about a month ago. She states that she had quite a bit of pain at that time although it felt different. This started about a week ago, it has been slowly increasing in pain. She was seen at a walk-in clinic yesterday received Toradol and felt better, she was seen here in the emergency department had cardiac workup which was negative and return home. Patient states that her pain has continued. She states no fevers, no chills, no shortness of breath. She describes it more of epigastric kind of radiating around. Although she states that it seems to be coming more from the back and coming to the front. She states yesterday seemed more in the front and going to the back. Patient denies any issues with nausea or vomiting, no issues with bowel movements or urination. She does take Eliquis for atrial fibrillation, she denies any other cardiac issues. She does take a Lasix intermittently. She states she is allergic to naproxen and gets red but she has had Motrin without issues. She has had her appendix as well as . She denies any other surgeries. Remote history of tobacco use 40 years ago, no alcohol, no illicit. Related Data Previous Rx's Medication Instructions Recorded omeprazole 40 mg PO DAILY #14 cap 08/22/18 docusate sodium [Colace] 100 mg PO BID PRN #20 cap 08/23/18 oxycodone 5 mg PO Q4-6H PRN #14 tab 08/23/18 Allergies Allergy/AdvReac Type Severity Reaction Status Date / Time naproxen Allergy Verified 08/23/18 08:09 Review of Systems Review of Systems ROS Unobtainable: All systems reviewed & are unremarkable except as noted in HPI and below Constitutional Denies chills, Denies fever(s), Denies lethargy and Denies weakness Cardiovascular Denies chest pain, Denies syncope, Denies rapid heart rate, Denies irregular heart rhythm, Denies lightheadedness, Denies palpitations, Denies dyspnea, Denies dyspnea on exertion and Denies orthopnea Respiratory Denies chest congestion, Denies cough, Denies hemoptysis, Denies dyspnea, Denies dyspnea on exertion and Denies wheezing Gastrointestinal Gastrointestinal: Reports abdominal pain (Back pain radiating different), Denies melena, Denies hematochezia, Denies change in bowel habits, Denies constipation, Denies diarrhea, Denies nausea and Denies vomiting Genitourinary Denies hematuria, Reports urinary frequency, Denies dysuria, Denies flank pain, Denies urinary incontinence and Denies urinary urgency Musculoskeletal Reports abnormal gait (Second pain), Reports back pain, Reports limited range of motion, Denies numbness, Denies radiating pain into limb and Denies tingling Integumentary/Breasts Denies rash and Denies unusual bruising Neurologic Reports abnormal gait (Second pain), Denies syncope, Denies numbness, Denies tingling and Denies weakness Endocrine Denies palpitations Allergic/Immunologic Denies wheezing [facility] Medical History (Updated 08/23/18 @ 11:36 by Roselyn Aguiar DO) Atrial fibrillation (Acute) Surgical History (Updated 08/23/18 @ 09:36 by Roselyn Aguiar DO) Hx of appendectomy (Chronic) Social History (Updated 08/23/18 @ 09:36 by Roselyn Aguiar DO) marital status: Smoking Status: Former smoker alcohol intake: never substance use type: does not use Social History (Updated 08/23/18 @ 09:36 by Roselyn Aguiar DO) marital status: Smoking Status: Former smoker alcohol intake: never substance use type: does not use Exam Narrative Exam Narrative: GENERAL: Alert and oriented x three, well-nourished elderly female in moderate distress. HEENT: Head normocephalic, atraumatic, EOMI, pupils reactive, face symmetric, moist mucous membranes NECK: Supple, full range of motion CARDIOVASCULAR: Regular rate and rhythm without murmurs, rubs or gallops. RESPIRATORY: Breath sounds equal bilaterally, no wheezes rales or rhonchi. ABDOMEN: Soft, nontender. Normoactive bowel sounds all 4 quadrants. No guarding or rebound, rigidity, no mass BACK: No cervical or lumbar vertebral point tenderness. Patient is tender over T5/6, no crepitus. Patient has decreased range of motion. Patient's gait is intact. Rectal exam is [normal sphincter tone/decreased tone/no tone/deferred or refused]. Muscle strength is 5/5 in lower extremities, Dorsalis pedis and tibialis pulses are 2+ and lower extremities. Sensation is intact in the lower extremities. Patient is quite uncomfortable with any sort of movement or rotation. : No CVA tenderness EXTREMITIES: Normal range of motion, no clubbing or edema. Neurovascularly intact NEUROLOGICAL: Cranial nerves II through XII grossly intact. Moving all extremities SKIN: Warm, dry, no petechiae, no rashes or lesions. Initial Vital Signs Initial Vital Signs: Vital Signs Temperature 97.6 F 08/23/18 08:09 Pulse Rate 65 08/23/18 08:09 Respiratory Rate 14 08/23/18 08:09 Blood Pressure 182/85 H 08/23/18 08:09 Pulse Oximetry 100 08/23/18 08:09 Course Orders Ordered: ED Orders 08/23/18 09:15 Urine Microscopic Stat 08/23/18 09:32 CT thoracic spine wo con Stat 08/23/18 09:38 EKG-12 Lead Stat 08/23/18 09:45 Complete Blood Count AUTO DIFF Stat Comprehensive Metabolic Panel Stat Lipase Stat Troponin & CK Cardiac Panel Stat Discontinued Medications Sodium Chloride (Normal Saline 0.9%) 1,000 mls @ 1,000 mls/hr IV BOLUS ONE Stop: 08/23/18 10:21 Last Admin: 08/23/18 11:51 Dose: Not Given Ketorolac Tromethamine (Toradol) 15 mg IV NOW ONE Stop: 08/23/18 09:33 Last Admin: 08/23/18 09:57 Dose: Not Given Ketorolac Tromethamine (Toradol) 30 mg IM NOW ONE Stop: 08/23/18 09:56 Last Admin: 08/23/18 10:03 Dose: Not Given Ketorolac Tromethamine (Toradol) 15 mg IM NOW ONE Stop: 08/23/18 09:59 Last Admin: 08/23/18 10:00 Dose: 15 mg Vital Signs - 8 hr 08/23/18 08:09 08/23/18 11:43 08/23/18 11:51 Temperature 97.6 F Pulse Rate 65 55 L 56 L Respiratory Rate 14 16 15 Blood Pressure 182/85 H 170/57 H Blood Pressure [Right Arm] 170/57 H Pulse Oximetry 100 90 L 100 MDM - Abdominal Pain Lab Data Attestation: I reviewed the patient's lab results. Result diagrams: 08/23/18 09:45 08/23/18 09:45 Lab Results 08/23/18 08/23/18 08/23/18 Range/Units 09:15 09:45 09:45 WBC 9.5 (4.5-11.0) X10^3/uL RBC 4.57 (4.0-5.2) X10^6/uL Hgb 15.4 (12.0-16.0) g/dL Hct 45.6 (36-46) % MCV 99.7 (80-100) fL MCH 33.6 (26-34) PG MCHC 33.7 (30-36) % RDW 14.0 (11.6-14.8) % Plt Count 204 (150-400) X10^3/uL Neut % (Auto) 58.9 (50-75) % Lymph % (Auto) 32.1 (25-40) % [place] % (Auto) 6.0 (3-14) % Eos % (Auto) 2.2 (2-4) % Baso % (Auto) 0.8 (0-2) % Neut # (Auto) 5600 (0359-1333) /uL Lymph # (Auto) 3000 (8850-6294) /uL [place] # (Auto) 600 (0-900) /uL Eos # (Auto) 200 (0-450) /uL Baso # (Auto) 100 (0-100) /uL Sodium 142 (137-145) mmol/L Potassium 5.1 D (3.4-5.1) mmol/L Chloride 104 (98-107) mmol/L Carbon Dioxide 27 (22-32) mmol/L BUN 22 H (7-17) mg/dL Creatinine 0.70 (0.52-1.04) mg/dL Estimated GFR > 60.0 (>60) mL/min BUN/Creatinine Ratio 31.4 H (6-22) Glucose 89 (80-110) mg/dL Calcium 9.4 (8.4-10.2) mg/dL Total Bilirubin 1.0 (0.2-1.3) mg/dL AST 32 (14-36) IU/L ALT 13 (9-52) IU/L Alkaline Phosphatase 76 (38-126) U/L Total Creatine Kinase (30-135) U/L CK-MB (CK-2) CK-MB (CK-2) Rel Index Troponin I (0.01-0.034) ng/mL Total Protein 7.4 (6.3-8.2) g/dL Albumin 4.3 (3.5-5.0) g/dL Globulin 3.1 (1.7-4.1) g/dL Albumin/Globulin Ratio 1.4 (1.0-2.8) Lipase 229 (23-300) U/L Urine RBC 1-5/hpf (0-5/HPF) Urine WBC 0-1/hpf (0-5/HPF) Amorphous Sediment 1+ Urine Bacteria Few (2-10) H (None) Ur Culture Indicated? Cult not indicated 08/23/18 Range/Units 09:45 WBC (4.5-11.0) X10^3/uL RBC (4.0-5.2) X10^6/uL Hgb (12.0-16.0) g/dL Hct (36-46) % MCV (80-100) fL MCH (26-34) PG MCHC (30-36) % RDW (11.6-14.8) % Plt Count (150-400) X10^3/uL Neut % (Auto) (50-75) % Lymph % (Auto) (25-40) % [place] % (Auto) (3-14) % Eos % (Auto) (2-4) % Baso % (Auto) (0-2) % Neut # (Auto) (6552-7907) /uL Lymph # (Auto) (4253-4180) /uL Concordia # (Auto) (0-900) /uL Eos # (Auto) (0-450) /uL Baso # (Auto) (0-100) /uL Sodium (137-145) mmol/L Potassium (3.4-5.1) mmol/L Chloride (98-107) mmol/L Carbon Dioxide (22-32) mmol/L BUN (7-17) mg/dL Creatinine (0.52-1.04) mg/dL Estimated GFR (>60) mL/min BUN/Creatinine Ratio (6-22) Glucose (80-110) mg/dL Calcium (8.4-10.2) mg/dL Total Bilirubin (0.2-1.3) mg/dL AST (14-36) IU/L ALT (9-52) IU/L Alkaline Phosphatase (38-126) U/L Total Creatine Kinase 33 (30-135) U/L CK-MB (CK-2) TNP CK-MB (CK-2) Rel Index TNP Troponin I < 0.012 (0.01-0.034) ng/mL Total Protein (6.3-8.2) g/dL Albumin (3.5-5.0) g/dL Globulin (1.7-4.1) g/dL Albumin/Globulin Ratio (1.0-2.8) Lipase (23-300) U/L Urine RBC (0-5/HPF) Urine WBC (0-5/HPF) Amorphous Sediment Urine Bacteria (None) Ur Culture Indicated? Point of care testing: Urine Dip Bedside Urine Glucose Negative Bedside Urine Bilirubin - Negative Bedside Urine Ketone - Negative Urine Specific [place] 1.010 Bedside Urine Occult Blood +/- Bedside Urine pH 8.0 Bedside Urine Protein - Negative Bedside Urine Nitrite - Negative Bedside Urine Leukocytes - Negative Esterase Imaging Data CT T-spine: Radiologist's impression: 17 DO Estuardo Benjamin Patient Imaging Aletha Price 83 F 1935 ACTIVITY DATE EXAM STATUS AUTHOR 08/23/18 09:32 [place] [address] CT Scan Report Signed Patient: Aletha Price FMR#: [id number] : 1935cct:[id number] Age/Sex: 83 / FDate of Service: 08/23/18 Loc: ED Accession Number: [id number] Procedure: CT thoracic spine wo con Ordering Provider: Roselyn Aguiar D.O. PROCEDURE: CT THORACIC SPINE WO CON INDICATIONS: pain T5/6 with palpation and movement. fall 1 month ago. TECHNIQUE: Noncontrast 3 mm thick sections acquired through the region of interest in the thoracic spine. Sagittal and coronal reformats were then constructed. For radiation dose reduction, the following was used: automated exposure control. COMPARISON: [facility], CR, XR CHEST 2V, 04/21/2018, 14:04. FINDINGS: Image quality: Diagnostic. Bones: The cervicothoracic and thoracolumbar junctions are well visualized and the alignment through these regions is within normal limits. There is an acute compression deformity involving the T7 vertebral body with increased density identified along the inferior endplate of mild buckling of the anterior cortex. No retropulsion is evident. There is approximately 25 % anterior vertical height loss. No additional compression deformities are evident. The remainder of the vertebral body heights are well-maintained. No suspicious osseous lesions are identified. Mild degenerative changes of the thoracic spine are noted. Incidental note is made of a subacute appearing fracture involving the medial aspect of the right clavicle at the sternoclavicular joint (image 23, series 2). Periosteal reaction is evident. Soft tissues: No paravertebral masses or hematomas. Visualized posteromedial lungs appear clear. Calcified granulomas are evident within the bilateral lung apices. There is aortic atherosclerosis. There also are calcified granulomas within the spleen and liver. IMPRESSION: 1. T7 compression fracture with mild anterior vertical height loss. No retropulsion. 2. Subacute/healing proximal right clavicle fracture. Dictated by: Nitish Graham M.D. on 08/23/2018 at 10:05 Approved by: Nitish Graham M.D. on 08/23/2018 at 10:09 ECG Data Attestation: I personally reviewed and interpreted this ECG as follows: Prior ECG tracings: available for review Interpretation: Sinus bradycardia rate of 54 P are 182 QRS 88 QTC of 445. No ST elevation or depression appreciated appears similar to prior EKG from yesterday. Q-wave in 3 and AVF. MDM Narrative Medical decision making narrative: Patient is tender to palpation on exam, C- spine CT was ordered, shows a T7 fracture. Patient was also complaining of some pain anteriorly and was hypertensive on arrival so cardiac enzymes as well as EKG and abdominal labs for evaluation for pancreatitis, cardiac causes, pul monary or bony causes were included. Patient does have a remote fall about a month ago. This may have been the nidus for her pain. Plan for pain control, walker and follow up with primary care. Patient and are comfortable with this plan. Discharge Plan Departure Patient Disposition: Home Clinical Impression: Compression fracture of T7 vertebra Discharge Date/Time: 08/23/18 11:52 Interventions: ED Discharge Assessment Last Done: 08/23/18 11:51 Instructions: Vertebral Compression Fracture Activity Restrictions/Additional Instructions: Follow up with primary care and/or orthopedic surgery for follow-up. Call for an appointment. Take 1000 mg every 8 hours as needed for pain. You have also been prescribed narcotic pain medication for breakthrough pain, take this as needed. Take pain medication as prescribed this medication can make you sleepy, do not drive, perform hazardous activities or make any major decisions while taking this medication. You may take ibuprofen up to 800 mg every 8 hours as needed with this medication. I also recommend taking a stool softener while you are taking narcotics. Return to the emergency department for fevers greater 100.4 F, new numbness, weakness, loss of sensation, rapidly worsening pain, new shortness of breath, chest pressure or other new or concerning symptoms. Prescriptions: New docusate sodium [Colace] 100 mg capsule 100 mg PO BID PRN (Reason: constipation) Qty: 20 RF: 0 oxycodone 5 mg tablet 5 mg PO Q4-6H PRN (Reason: pain) Qty: 14 RF: 0 No Action omeprazole 40 mg capsule,delayed release(DR/EC) 40 mg PO DAILY Qty: 14 RF: 0 Referrals: Bishop Hansen MD [Primary Care Provider] - Cale Ortiz MD [Physician] -
[2018-08-23 09:41] LABS: RBC Urine 1-5/HPF (0-5/HPF)
[2018-08-23 09:42] LABS: Amorphous Sediment Urine 1+; Bacteria Urine Few (2-10); Culture Indicated Urine Cult Not Indicated; WBC Urine 0-1/HPF (0-5/HPF)
[2018-08-23 09:53] LABS: Add Manual Diff / Slide Review NO; Basophils Absolute Auto 100 /uL (0-100); Basophils Percent Auto 0.8 % (0-2); Eosinophils Absolute Auto 200 /uL (0-450); Eosinophils Percent Auto 2.2 % (2-4); Hematocrit 45.6 % (36-46); Hemoglobin 15.4 g/dL (12.0-16.0); Lymphocytes Absolute Auto 3000 /uL (1100-4500); Lymphocytes Percent Auto 32.1 % (25-40); Mean Corpuscular HGB Conc 33.7 % (30-36); Mean Corpuscular Hemoglobin 33.6 PG (26-34); Mean Corpuscular Volume 99.7 fL (80-100); Monocytes Absolute Auto 600 /uL (0-900); Neutrophils Absolute Auto 5600 /uL (1500-7000); Neutrophils Percent Auto 58.9 % (50-75); Platelet Count 204 X10^3/uL (150-400); Red Blood Cell Count 4.57 X10^6/uL (4.0-5.2); White Blood Cell Count 9.5 X10^3/uL (4.5-11.0)
[2018-08-23] MEDS: KETOROLAC 60 MG/2 ML VIAL 15 MG IM (10:00)
[2018-08-23 10:05] LABS: Creatine Kinase 33 U/L (30-135)
[2018-08-23 10:06] LABS: Alanine Aminotransferase 13 IU/L (9-52); Albumin 4.3 g/dL (3.5-5.0); Albumin Globulin Ratio 1.4 (1.0-2.8); Alkaline Phosphatase 76 U/L (38-126); Aspartate Aminotransferase 32 IU/L (14-36); BUN Creatinine Ratio 31.4 (6-22); Blood Urea Nitrogen 22 mg/dL (7-17); Calcium 9.4 mg/dL (8.4-10.2); Carbon Dioxide 27 mmol/L (22-32); Chloride 104 mmol/L (98-107); Estimated Glomerular Filt Rate > 60.0 mL/min (>60); Globulin 3.1 g/dL (1.7-4.1); Glucose 89 mg/dL (80-110); Lipase 229 U/L (23-300); Sodium 142 mmol/L (137-145); Total Protein 7.4 g/dL (6.3-8.2)
[2018-08-23 10:10] LABS: HEMOLYSIS 113 (0-50)
[2018-08-23 10:12] LABS: Potassium 5.1 mmol/L (3.4-5.1)
[2018-08-23 10:18] LABS: Troponin I < 0.012 ng/mL (0.01-0.034)
[2018-08-23 11:43] VITALS: BP 170/57; PULSE 55; RESP 16; O2SAT 90
[2018-08-23 11:51] VITALS: BP 170/57; PULSE 56; RESP 15; O2SAT 100
== END 2018-08-23 11:52 | disposition home or self-care (01) ==
PROVIDERS: Emergency Provider Emergency Medicine; PCP Family Medicine
DX: S22.060A Wedge compression fracture of T7-T8 vertebra, initial encounter for closed fracture (principal); R10.13 Epigastric pain; R03.0 Elevated blood-pressure reading, without diagnosis of hypertension; W19.XXXA Unspecified fall, initial encounter; Z79.01 Long term (current) use of anticoagulants
CPT/HCPCS: 72128; 80053; 81003; 81015; 82550; 83690; 84484; 85025; 93005; 96372; 99283; 99285; J1885

== ENCOUNTER → 2018-10-12 10:42 | Outpatient (CLI) | payer MEDICARE, OTHER, SELFPAY ==
--- NOTE | 2018-10-12 | DI.RAD.S_ITS ---
PROCEDURE: XR THORACIC SPINE 3V INDICATIONS: Low back pain TECHNIQUE: Pre-views of the thoracic spine were acquired. COMPARISON: [facility], CT, CT THORACIC SPINE WO CON, 08/23/2018, 10:22. FINDINGS: Bones: No dislocations. No suspicious bony lesions. 12 pairs of ribs are noted, and appear intact where visualized. Note is made of worsening of a previously present T7 vertebral body anterior wedge compression fracture, seen 08/23/[address] scanning. In addition, there is a new superior endplate impaction fracture at T12, not present on CT scanning from August of this year. Soft tissues: No paravertebral stripe thickening. IMPRESSION: Worsening T7 compression fracture now moderate in severity. Mild new T12 superior endplate compression fracture. Statistically these likely are osteoporotic in origin. No osteolytic or blastic lesion is associated. Dictated by: Oh Seals M.D. on 10/12/2018 at 12:49 Approved by: Oh Seals M.D. on 10/12/2018 at 13:03
--- NOTE | 2018-10-12 | DI.RAD.S_ITS ---
PROCEDURE: XR CLAVICLE RT INDICATIONS: Fracture of unspecified part of right clavicle TECHNIQUE: 2 views of the clavicle were acquired. COMPARISON: [facility], CT, CT THORACIC SPINE WO CON, 08/23/2018, 10:22. FINDINGS: Bones: No fractures or dislocations. No suspicious bony lesions. Soft tissues: No suspicious soft tissue calcifications. IMPRESSION: The medial right clavicular fracture identified by CT scanning through the thoracic spine 08/23/18 is no longer visualized, and shows normal alignment through that area. Dictated by: Oh Seals M.D. on 10/12/2018 at 12:47 Approved by: Oh Seals M.D. on 10/12/2018 at 12:49
== END ==
PROVIDERS: PCP Family Medicine; Visit Provider Family Medicine
DX: S42.001D Fracture of unspecified part of right clavicle, subsequent encounter for fracture with routine healing (principal); M54.5 Low back pain
CPT/HCPCS: 72072; 73000

== ENCOUNTER → 2018-12-03 08:55 | Outpatient (CLI) | payer MEDICARE, OTHER, SELFPAY ==
--- NOTE | 2018-12-03 | DI.ECHO.S_ITS ---
[place] +---------+ Hospital +---------+ : : [address] : : : : [id number] : : : : Phone: [phone]+ Echocardiogram Report + + :Name: LUTHER JOHN Study Date: 12/03/2018 Height: 60 in : :[facility] Weight: 129 lb: : Gender: Female BSA: 1.5 m2 : :: 1935 Age: 83 yrs BP: 122/ mmHg : :Reason For Study: Atrial fibrillation - paroxysmal : :Ordering Physician: Sosa Henry M.D. : :[place] Performed By: Silvia Jaime : :Referring: Dr. Bishop Hansen : + + Interpretation Summary The left ventricle is normal in size. The ejection fraction is estimated to be 60-65%. There has been no significant change in LV EF since the previous study. The right ventricle is grossly normal size. The right ventricular systolic function is normal. The left atrium is severely dilated. The left atrium has significantly increased in size since the prior echo exam. There is mild to moderate mitral regurgitation. Compared to the prior echo study, there has been an increase in the severity of mitral regurgitation. There is moderate tricuspid regurgitation. Compared to the prior echo exam, there has been an increase in TR severity. The right ventricular systolic pressure is estimated to be at least 26 mmHg based on an estimated right atrial pressure of 3 mm Hg. Procedure: A two-dimensional transthoracic echocardiogram with color flow and Doppler was performed. The study quality was technically adequate. Comparison is made with the echocardiogram of 05-06-18. The patient was in atrial fibrillation with heart rates between 86-99 bpm during the exam. Left Ventricle: The left ventricle is normal in size. There is normal left ventricular wall thickness. There is no thrombus. The ejection fraction is estimated to be 60-65%. There has been no significant change since the previous study. There are no focal wall motion abnormalities. Diastolic function could not be accurately assessed due to atrial fibrillation. Right Ventricle: The right ventricle is grossly normal size. The right ventricular systolic function is normal. Atria: The left atrium is severely dilated. The left atrium has significantly increased in size since the prior echo exam. The right atrium is moderately dilated. The right atrium has mildly increased in size since the prior echo exam. A prominent eustachian valve is noted. The interatrial septum is intact with no evidence for an atrial septal defect. Mitral Valve: The mitral valve is grossly normal. There is mild mitral annular calcification. There is mild to moderate mitral regurgitation. Compared to the prior echo study, there has been an increase in the severity of mitral regurgitation. Aortic Valve: The aortic valve is trileaflet. The aortic valve opens well. The aortic valve is slightly calcified. There is no aortic valve stenosis. No aortic regurgitation is present. Tricuspid Valve: The tricuspid valve is normal. There is moderate tricuspid regurgitation. The right ventricular systolic pressure is estimated to be at least 26 mmHg based on an estimated right atrial pressure of 3 mm Hg. Compared to the prior echo exam, there has been an increase in TR severity. Pulmonic Valve: The pulmonic valve is not well seen, but is grossly normal. There is no pulmonic valvular regurgitation. Great Vessels: The aortic root is normal size. The dimensions of the ascending aorta are normal. The aortic arch is normal in size. The IVC is of normal diameter and collapses greater than 50% with a sniff. This suggests a low right atrial pressure of 3 mm Hg. Pericardium/ Pleura There is a trivial pericardial effusion noted. There are no echocardiographic indications of cardiac tamponade. There is an anterior echo-free space consistent with a fat pad. There is no pleural effusion. MMode/2D Measurements & Calculations LVIDd: 4.2 cm Ao root diam: 2.9 cm LVIDs: 2.8 cm Aortic Jxn: 2.4 cm FS: 32.4 % asc Aorta Diam: 2.7 cm EPSS: 0.47 cm Ao Arch Diam (Prox Trans): 2.4 cm IVSd: 0.77 cm LVPWd: 0.73 cm LV webster. diameter/BSA (cm/m^2): 2.7 LV sys. diameter/BSA (cm/m^2): 1.8 LA dimension: 3.4 cm RA long axis: 5.1 cm LA A2 area: 22.2 cm2 RA area: 16.4 cm2 LA A4 area: 19.5 cm2 RA vol: 44.5 ml LA length (vol): 5.5 cm RA : 28.7 ml/m2 LA vol: 66.7 ml IVC diam: 1.6 cm LA vol index: 43.0 ml/m2 RVDd major: 5.0 cm RVD1 (basal): 3.0 cm RVD2 (mid): 2.5 cm Doppler Measurements & Calculations Ao V2 max: 147.6 cm/sec MR ERO: 0.15 cm2 Ao V2 mean: 97.7 cm/sec Ao max P.7 mmHg Ao mean P.5 mmHg Ao V2 VTI: 29.3 cm TR max howard: 241.6 cm/sec MV V2 mean: 57.1 cm/sec TR max P.3 mmHg MV mean P.8 mmHg PA V2 max: 50.3 cm/sec MV V2 VTI: 19.9 cm PA V2 mean: 33.5 cm/sec PA mean P.53 mmHg PA Accel Time: 0.16 sec MR flow rate: 66.8 cm3/sec MR PISA radius: 0.52 cm Reading Physician:01:03 PM
== END ==
PROVIDERS: PCP Family Medicine; Visit Provider Internal Medicine Cardiovascular Disease
DX: I08.1 Rheumatic disorders of both mitral and tricuspid valves (principal); I48.0 Paroxysmal atrial fibrillation
CPT/HCPCS: 93306

== ENCOUNTER → 2018-12-28 10:49 | Outpatient (CLI) | payer MEDICARE, OTHER, SELFPAY ==
--- NOTE | 2018-12-28 | DI.RAD.S_ITS ---
PROCEDURE: XR THORACIC SPINE 3V INDICATIONS: compression fracture TECHNIQUE: 3 views of the thoracic spine were acquired. COMPARISON: [facility], CR, XR THORACIC SPINE 3V, 10/12/2018, 10:48. FINDINGS: Bones: Redemonstration of T7 and T12 compression fractures, with no definite interval change in height since 10/12/18. Multilevel degenerative endplate sclerosis and spurring. Diffuse facet arthropathy. Cervical spondylosis also partially visualized. Soft tissues: No paravertebral stripe thickening. Scattered bibasilar calcified granulomas. Small left pleural effusion, as before. Adjacent atelectasis. IMPRESSION: No interval progression in T7 and T12 compression fractures. Dictated by: Cooper Boyd M.D. on 12/28/2018 at 11:58 Approved by: Cooper Boyd M.D. on 12/28/2018 at 12:01
== END ==
PROVIDERS: PCP Family Medicine; Visit Provider Family Medicine
DX: S22.000A Wedge compression fracture of unspecified thoracic vertebra, initial encounter for closed fracture (principal)
CPT/HCPCS: 72072

== ENCOUNTER → 2019-09-16 13:26 | Outpatient (CLI) | payer MEDICARE, OTHER, SELFPAY ==
--- NOTE | 2019-09-16 | DI.MG.S_ITS ---
BILATERAL DIGITAL SCREENING MAMMOGRAM 3D/2D WITH CAD: 09/16/2019 CLINICAL: Routine screening. Personal history of left breast cancer. Comparison is made to exams dated: 08/11/2018 mammogram, 07/31/2017 mammogram, 07/30/2016 mammogram, and 08/02/2015 mammogram - [facility]. There are scattered fibroglandular elements in both breasts. Current study was also evaluated with a Computer Aided Detection (CAD) system. There are benign vascular calcifications in both breasts. There also are benign post operative findings in the left breast. No significant masses, calcifications, or other findings are seen in either breast. There has been no significant interval change. IMPRESSION: There is no mammographic evidence of malignancy. A 1 year screening mammogram is recommended. This exam was interpreted at Station ID: [id number]. NOTE: For mammograms, a report in lay terms will be sent to the patient. Approximately 15% of breast malignancies will not be visualized mammographically. In the management of a palpable breast mass, a negative mammogram must not discourage biopsy of a clinically suspicious lesion. Electronically Signed By: Dann dao/emerson:09/16/2019 17:22:29 letter sent: Normal Exam ACR BI-RADS Category 2: Benign Finding(s) 3342F
== END ==
PROVIDERS: PCP Family Medicine; Referring Provider Family Medicine; Visit Provider Family Medicine
DX: Z12.31 Encounter for screening mammogram for malignant neoplasm of breast (principal); Z85.3 Personal history of malignant neoplasm of breast
CPT/HCPCS: 77063; 77067

== ENCOUNTER 2019-10-04 18:36 | Emergency (ER) | payer MEDICARE, OTHER, SELFPAY ==
[2019-10-04] VITALS (22 sets, daily range): BP systolic 85–135; BP diastolic 44–80; PULSE 56–69; RESP 12–48; TEMP 36.9; O2SAT 95–100
[2019-10-04] MEDS: ONDANSETRON 4 MG/2 ML INJ IV (19:01)
[2019-10-04 19:16] LABS: Add Manual Diff / Slide Review NO; Basophils Absolute Auto 100 /uL (0-100); Basophils Percent Auto 0.6 % (0-2); Eosinophils Absolute Auto 100 /uL (0-450); Eosinophils Percent Auto 0.6 % (2-4); Hematocrit 46.3 % (36-46); Hemoglobin 15.8 g/dL (12.0-16.0); Lymphocytes Absolute Auto 4600 /uL (1100-4500); Lymphocytes Percent Auto 29.9 % (25-40); Mean Corpuscular HGB Conc 34.1 % (30-36); Mean Corpuscular Hemoglobin 33.3 PG (26-34); Mean Corpuscular Volume 97.6 fL (80-100); Monocytes Absolute Auto 1200 /uL (0-900); Monocytes Percent Auto 8.1 % (3-14); Neutrophils Absolute Auto 9300 /uL (1500-7000); Neutrophils Percent Auto 60.8 % (50-75); Platelet Count 244 X10^3/uL (150-400); Red Blood Cell Count 4.74 X10^6/uL (4.0-5.2); Red Cell Distribution Width 14.7 % (11.6-14.8); White Blood Cell Count 15.3 X10^3/uL (4.5-11.0)
[2019-10-04 19:19] LABS: Prothrombin Time 11.8 SECONDS (10.1-12.7)
[2019-10-04 19:22] LABS: PTT Partial Thromboplastin Tim 25 SECONDS (26.4-36.2)
[2019-10-04 19:23] LABS: Alanine Aminotransferase 16 IU/L (<35); Albumin 4.3 g/dL (3.5-5.0); Albumin Globulin Ratio 1.3 (1.0-2.8); Alkaline Phosphatase 78 U/L (38-126); Aspartate Aminotransferase 27 IU/L (14-36); BUN Creatinine Ratio 23.6 (6-22); Bilirubin Total 0.7 mg/dL (0.2-1.3); Blood Urea Nitrogen 17 mg/dL (7-17); Calcium 9.2 mg/dL (8.4-10.2); Carbon Dioxide 35 mmol/L (22-32); Chloride 93 mmol/L (98-107); Estimated Glomerular Filt Rate > 60.0 mL/min (>60); Globulin 3.2 g/dL (1.7-4.1); Glucose 152 mg/dL (80-110); HEMOLYSIS < 15 (0-50); Lipase 90 U/L (23-300); Potassium 2.9 mmol/L (3.4-5.1); Sodium 133 mmol/L (137-145); Total Protein 7.5 g/dL (6.3-8.2)
--- NOTE | 2019-10-04 19:25 | ED_ITS ---
HPI - General Adult General Chief complaint: Abdominal Pain Stated complaint: nausea, vomiting Time Seen by Provider: 10/04/19 18:58 Source: patient and family Mode of arrival: Wheelchair Limitations: no limitations History of Present Illness HPI narrative: 84-year-old female here for evaluation of nausea and vomiting and abdominal pain. Patient states that it started approximately noon today. Has had multiple episodes of vomiting since then. She states that her last episode of vomiting was after arrival here to the emergency department. She stated that after that episode of vomiting she did feel much better. Despite the nursing triage note the patient told me that she was not having any diarrhea. No recent antibiotics. No recent travel. No exposure to anyone known with COVID-19. She has been taking her medications as directed. Has had her appendix out and a C- section in the past. Related Data Home Medications Medication Instructions Recorded Confirmed apixaban [Eliquis] 2.5 mg PO BID 10/04/19 10/04/19 carvedilol 3.125 mg PO BID 10/04/19 10/04/19 chlorthalidone 12.5 mg PO DAILY 10/04/19 10/04/19 flecainide 50 mg PO BID 10/04/19 10/04/19 furosemide 20 mg PO DAILY 10/04/19 10/04/19 Previous Rx's Medication Instructions Recorded oxycodone 5 mg PO Q4-6H PRN #14 tab 08/23/18 Allergies Allergy/AdvReac Type Severity Reaction Status Date / Time naproxen Allergy Verified 08/23/18 08:09 Review of Systems Constitutional Constitutional: Denies fever(s) Cardiovascular Cardiovascular: Denies chest pain and Denies dyspnea Respiratory Respiratory: Denies dyspnea Gastrointestinal Gastrointestinal: Reports abdominal pain, Denies change in bowel habits, Reports nausea and Reports vomiting Genitourinary Genitourinary: Denies dysuria Genitourinary: Denies dysuria Musculoskeletal Musculoskeletal: Denies arthralgias and Denies myalgias Integumentary/Breasts Skin/Breast: Denies rash Neurologic Neurologic: Denies behavioral changes Psychiatric Psychiatric: Denies behavioral changes Hematologic/Lymphatic Hematologic/Lymphatic: Denies easy bleeding and Denies easy bruising Allergic/Immunologic Allergic/Immunologic: Denies urticaria Patient History Medical History Atrial fibrillation (Acute) Surgical History (Updated 08/23/18 @ 09:36 by Roselyn Aguiar DO) Hx of appendectomy (Chronic) Social History marital status: Smoking Status: Former smoker alcohol intake: never substance use type: does not use Smoking Status: Former smoker Substance Use Type: does not use Exam Initial Vital Signs Initial Vital Signs: Vital Signs Temperature 98.4 F 10/04/19 18:46 Pulse Rate 56 L 10/04/19 18:46 Respiratory Rate 22 10/04/19 18:46 Blood Pressure 135/76 10/04/19 18:46 Pulse Oximetry 99 10/04/19 18:46 Const General: cooperative and comfortable Limitations: mental status not altered HENMT Head: normal to inspection and normocephalic Resp Effort & Inspection: normal respiratory effort Auscultation: clear to auscultation bilaterally Cardio Rate: regular rate Rhythm: regular rhythm GI Inspection: non-distended Palpation: soft, No firm and tender (Generalized tenderness without guarding) Skin Lesions: no lesions Rashes: no rashes Neuro General: patient alert, patient awake and patient oriented x3 Cognition: normal cognition Speech: speech normal Extrem General: normal to inspection and capillary refill normal Psych Appearance: grossly normal and well kempt Course Orders Ordered: ED Orders 10/04/19 18:54 EKG-12 Lead Stat 10/04/19 19:00 Complete Blood Count AUTO DIFF Stat Comprehensive Metabolic Panel Stat Lipase Stat Partial Thromboplastin Time Stat Prothrombin Time INR Stat 10/04/19 19:31 CT abdomen pelvis w con Stat 10/04/19 21:34 Urinalysis and Microscopic Stat Urine Culture Stat Discontinued Medications Sodium Chloride (Normal Saline 0.9%) 1,000 mls @ 500 mls/hr IV BOLUS ONE Stop: 10/04/19 21:29 Last Infusion: 10/04/19 22:06 Dose: 0 mls/hr Documented by: Admin: 10/04/19 19:37 Dose: 500 mls/hr Documented by: GORDO Potassium Chloride 40 meq/ (Sodium Chloride) 520 mls @ 130 mls/hr IV NOW ONE Stop: 10/05/19 00:04 Last Infusion: 10/05/19 00:20 Dose: 0 mls/hr Documented by: GORDO Ziegler by: NELSON Infusion: 10/04/19 22:58 Dose: 200 mls/hr Documented by: GORDO Ziegler by: NELSON Infusion: 10/04/19 22:16 Dose: 175 mls/hr Documented by: GORDO Ziegler by: NELSON Infusion: 10/04/19 21:55 Dose: 150 mls/hr Documented by: GORDO Ziegler by: NELSON Infusion: 10/04/19 21:05 Dose: 130 mls/hr Documented by: GORDO Ziegler by: NELSON Infusion: 10/04/19 20:59 Dose: 100 mls/hr Documented by: GORDO Ziegler by: NELSON Admin: 10/04/19 20:52 Dose: 130 mls/hr Documented by: GORDO Ziegler by: NELSON Sodium Chloride (Normal Saline 0.9%) 1,000 mls @ 125 mls/hr IV CONT SAMARA Last Infusion: 10/05/19 00:19 Dose: 0 mls/hr Documented by: Admin: 10/04/19 22:03 Dose: 125 mls/hr Documented by: GORDO Ondansetron HCl (Zofran) 4 mg IV NOW ONE Stop: 10/04/19 18:54 Last Admin: 10/04/19 19:01 Dose: 4 mg Documented by: SHWETHA Ondansetron HCl (Zofran Odt Prepack) 1 bottle MISC SEEINSTR ONE Stop: 10/04/19 23:57 Last Admin: 10/05/19 00:04 Dose: 1 bottle Documented by: GORDO Vital Signs Vital signs: Vital Signs - 8 hr 10/04/19 18:46 10/04/19 19:20 10/04/19 19:30 Temperature 98.4 F Pulse Rate 56 L 57 L 60 Respiratory Rate 22 18 48 H Blood Pressure 135/76 Pulse Oximetry 99 100 100 10/04/19 20:00 10/04/19 20:01 10/04/19 20:03 Temperature Pulse Rate 63 63 65 Respiratory Rate 19 21 25 H Blood Pressure 85/53 L 85/44 L Pulse Oximetry 97 96 97 10/04/19 20:08 10/04/19 20:15 10/04/19 20:30 Temperature Pulse Rate 63 63 64 Respiratory Rate 20 26 H 22 Blood Pressure 94/53 L 104/52 L 109/52 L Pulse Oximetry 99 100 97 10/04/19 20:59 10/04/19 21:00 10/04/19 21:15 Temperature Pulse Rate 63 62 62 Respiratory Rate 21 17 12 Blood Pressure 119/60 112/58 L 102/53 L Pulse Oximetry 99 99 97 10/04/19 21:30 10/04/19 21:45 10/04/19 22:00 Temperature Pulse Rate 66 61 67 Respiratory Rate 17 18 24 Blood Pressure 117/80 110/69 117/66 Pulse Oximetry 99 99 97 10/04/19 22:15 10/04/19 22:30 10/04/19 22:48 Temperature Pulse Rate 65 69 67 Respiratory Rate 19 23 19 Blood Pressure 118/57 L 114/53 L 123/57 L Pulse Oximetry 98 97 98 10/04/19 23:00 10/04/19 23:15 10/04/19 23:30 Temperature Pulse Rate 65 66 68 Respiratory Rate 16 22 22 Blood Pressure 110/56 L 112/54 L 114/55 L Pulse Oximetry 96 97 95 10/04/19 23:45 Temperature Pulse Rate 66 Respiratory Rate 20 Blood Pressure 121/54 L Pulse Oximetry 97 Medical Decision Making Lab Data Lab results reviewed: Yes I reviewed the patient's lab results. Result diagrams: 10/04/19 19:00 10/04/19 19:00 Labs: Lab Results 10/04/19 10/04/19 10/04/19 Range/Units 19:00 19:00 19:00 WBC 15.3 H (4.5-11.0) X10^3/uL RBC 4.74 (4.0-5.2) X10^6/uL Hgb 15.8 (12.0-16.0) g/dL Hct 46.3 H (36-46) % MCV 97.6 (80-100) fL MCH 33.3 (26-34) PG MCHC 34.1 (30-36) % RDW 14.7 (11.6-14.8) % Plt Count 244 (150-400) X10^3/uL Neut % (Auto) 60.8 (50-75) % Lymph % (Auto) 29.9 (25-40) % [place] % (Auto) 8.1 (3-14) % Eos % (Auto) 0.6 L (2-4) % Baso % (Auto) 0.6 (0-2) % Neut # (Auto) 9300 H (4983-3337) /uL Lymph # (Auto) 4600 H (7639-6428) /uL [place] # (Auto) 1200 H (0-900) /uL Eos # (Auto) 100 (0-450) /uL Baso # (Auto) 100 (0-100) /uL PT 11.8 (10.1-12.7) SECONDS INR 1.0 (0.9-1.3) APTT 25 L D (26.4-36.2) SECONDS Sodium 133 L (137-145) mmol/L Potassium 2.9 L (3.4-5.1) mmol/L Chloride 93 L (98-107) mmol/L Carbon Dioxide 35 H (22-32) mmol/L BUN 17 (7-17) mg/dL Creatinine 0.72 (0.52-1.04) mg/dL Estimated GFR > 60.0 (>60) mL/min BUN/Creatinine Ratio 23.6 H (6-22) Glucose 152 H (80-110) mg/dL Calcium 9.2 (8.4-10.2) mg/dL Total Bilirubin 0.7 (0.2-1.3) mg/dL AST 27 (14-36) IU/L ALT 16 (<35) IU/L Alkaline Phosphatase 78 (38-126) U/L Total Protein 7.5 (6.3-8.2) g/dL Albumin 4.3 (3.5-5.0) g/dL Globulin 3.2 (1.7-4.1) g/dL Albumin/Globulin Ratio 1.3 (1.0-2.8) Lipase 90 (23-300) U/L Urine Color Urine Appearance Urine pH (4.5-8.0) Ur Specific [place] (1.000-1.035) Urine Protein (Negative) Urine Glucose (UA) (Negative) g/dL Urine Ketones (NEGATIVE) Urine Occult Blood (Negative) Urine Nitrate (Negative) Urine Bilirubin (NEGATIVE) Urine Urobilinogen (0.2) E.U./dL Ur Leukocyte Esterase (NEGATIVE) Urine RBC (0-5/HPF) Urine WBC (0-5/HPF) Urine Bacteria (None) Ur Culture Indicated? 10/04/19 Range/Units 21:34 WBC (4.5-11.0) X10^3/uL RBC (4.0-5.2) X10^6/uL Hgb (12.0-16.0) g/dL Hct (36-46) % MCV (80-100) fL MCH (26-34) PG MCHC (30-36) % RDW (11.6-14.8) % Plt Count (150-400) X10^3/uL Neut % (Auto) (50-75) % Lymph % (Auto) (25-40) % [place] % (Auto) (3-14) % Eos % (Auto) (2-4) % Baso % (Auto) (0-2) % Neut # (Auto) (6910-5128) /uL Lymph # (Auto) (2156-1040) /uL [place] # (Auto) (0-900) /uL Eos # (Auto) (0-450) /uL Baso # (Auto) (0-100) /uL PT (10.1-12.7) SECONDS INR (0.9-1.3) APTT (26.4-36.2) SECONDS Sodium (137-145) mmol/L Potassium (3.4-5.1) mmol/L Chloride (98-107) mmol/L Carbon Dioxide (22-32) mmol/L BUN (7-17) mg/dL Creatinine (0.52-1.04) mg/dL Estimated GFR (>60) mL/min BUN/Creatinine Ratio (6-22) Glucose (80-110) mg/dL Calcium (8.4-10.2) mg/dL Total Bilirubin (0.2-1.3) mg/dL AST (14-36) IU/L ALT (<35) IU/L Alkaline Phosphatase (38-126) U/L Total Protein (6.3-8.2) g/dL Albumin (3.5-5.0) g/dL Globulin (1.7-4.1) g/dL Albumin/Globulin Ratio (1.0-2.8) Lipase (23-300) U/L Urine Color Yellow Urine Appearance Clear Urine pH 7.5 (4.5-8.0) Ur Specific [place] <=1.005 (1.000-1.035) Urine Protein Negative (Negative) Urine Glucose (UA) Negative (Negative) g/dL Urine Ketones Negative (NEGATIVE) Urine Occult Blood 2+ H (Negative) Urine Nitrate Negative (Negative) Urine Bilirubin Negative (NEGATIVE) Urine Urobilinogen 0.2 (0.2) E.U./dL Ur Leukocyte Esterase 1+ H (NEGATIVE) Urine RBC 1-5/hpf (0-5/HPF) Urine WBC 1-5/hpf (0-5/HPF) Urine Bacteria None seen (None) Ur Culture Indicated? Specimen cultured Imaging Data CT scan - abdomen/pelvis: Radiologist's Impression: [address] [address] [address] Scan Report Signed Patient: Aletha Price FMR#: [id number] : 4Acct:[id number] Age/Sex: 84 / FDate of Service: 10/04/19 Loc: ED Accession Number: [id number] Procedure: CT abdomen pelvis w con Ordering Provider: Crispin Wellington D.O. PROCEDURE: CT ABDOMEN PELVIS W CON INDICATIONS: Generalized abdominal pain with vomiting TECHNIQUE: After the administration of intravenous contrast, 5 mm thick sections acquired from the diaphragm to the symphysis. 5 mm coronal and sagittal reformats were acquired. For radiation dose reduction, the following was used: automated exposure control, adjustment of mA and/or kV according to patient size. COMPARISON: None. FINDINGS: Image quality: Excellent. ABDOMEN: Lung bases: Lung bases are clear. Heart size is normal. Solid organs: Liver is normal in size and enhancement. Gallbladder is normal. Biliary system is non dilated. Pancreas enhances normally. Spleen is normal in size and enhancement. No adrenal nodules. Kidneys demonstrate normal size and enhancement, without hydronephrosis. Peritoneum and bowel: Numerous small bowel loops demonstrate wall thickening and mucosal hyperenhancement with engorged Vasa recta and very mild mesenteric fat stranding. There is also some subtle motion artifact of the small bowel which suggests hyper peristalsis. Small volume free fluid is present adjacent to 2 loops of small bowel in the right hemipelvis adjacent to the uterus. There is a large volume of formed stool throughout the colon. No colonic wall thickening. No pneumoperitoneum. Nodes and vessels: No threshold enlarged mesenteric or retroperitoneal lymph node. Diffusely atherosclerotic abdominal aorta without aneurysm. Miscellaneous: No ventral hernias. PELVIS: Genitourinary: Bladder wall thickness is normal. Miscellaneous: No inguinal hernias or adenopathy. Bones: No suspicious bony lesions. No vertebral body compression fractures. Extensive degenerative changes in the inferior thoracic spine and in the lumbar spine. IMPRESSION: Findings suggestive of small bowel enteritis/gastroenteritis. Clinical follow-up is recommended to ensure resolution. Dictated by: Nikhil Helton M.D. on 10/04/2019 at 21:05 Approved by: Nikhil Helton M.D. on 10/04/2019 at 21:11 ECG Data Attestation: I personally reviewed and interpreted this ECG as follows: Prior ECG tracings: not available for review Interpretation: Sinus rhythm Ventricular rate of 57 Left anterior fascicular block No ST T wave changes MDM Narrative Medical decision making narrative: Has not had any vomiting since my evaluation. Patient is hypokalemic. She states she does take a potassium supplement every day because she is on Lasix. She was given potassium here in the ER. CT scan does not show any signs of surgical pathology. Does show what looks like a small bowel enteritis this does fit her symptoms. No indication for antibiotics will send home with symptom treatment. Patient was given return precautions and follow-up instructions. She expressed understanding and agreement. Discharge Plan Departure Patient Disposition: Home Clinical Impression: Hypokalemia Abdominal pain Qualifiers: Abdominal location: generalized Qualified Code(s): R10.84 - Generalized abdominal pain Vomiting Qualifiers: Vomiting type: unspecified Vomiting Intractability: non-intractable Nausea presence: with nausea Qualified Code(s): R11.2 - Nausea with vomiting, unspecified Discharge Date/Time: 10/05/19 00:23 Instructions: DI for Abdominal Pain-Adult, DI for Vomiting -- Adult Activity Restrictions/Additional Instructions: Continue to take all of your medications as directed to include your potassium pills starting tomorrow. Be sure to increase her fluid intake. Take the nausea medication you were given this evening as needed. Do not be surprised if you develop some diarrhea over the next couple days. If this happens just be sure that you are drinking plenty of fluids. Contact your primary provider for follow-up. Return to the emergency department for any new or worsening symptoms Prescriptions: No Action furosemide 40 mg Tablet 20 mg PO DAILY RF: 0 chlorthalidone 25 mg tablet 12.5 mg PO DAILY RF: 0 carvedilol 3.125 mg tablet 3.125 mg PO BID RF: 0 flecainide 50 mg tablet 50 mg PO BID RF: 0 Eliquis 2.5 mg tablet 2.5 mg PO BID RF: 0 oxycodone 5 mg tablet 5 mg PO Q4-6H PRN (Reason: pain) Qty: 14 RF: 0 Referrals: Bishop Hansen MD [Primary Care Provider] -
--- NOTE | 2019-10-04 19:31 | DI.CT.S_ITS ---
PROCEDURE: CT ABDOMEN PELVIS W CON INDICATIONS: Generalized abdominal pain with vomiting TECHNIQUE: After the administration of intravenous contrast, 5 mm thick sections acquired from the diaphragm to the symphysis. 5 mm coronal and sagittal reformats were acquired. For radiation dose reduction, the following was used: automated exposure control, adjustment of mA and/or kV according to patient size. COMPARISON: None. FINDINGS: Image quality: Excellent. ABDOMEN: Lung bases: Lung bases are clear. Heart size is normal. Solid organs: Liver is normal in size and enhancement. Gallbladder is normal. Biliary system is non dilated. Pancreas enhances normally. Spleen is normal in size and enhancement. No adrenal nodules. Kidneys demonstrate normal size and enhancement, without hydronephrosis. Peritoneum and bowel: Numerous small bowel loops demonstrate wall thickening and mucosal hyperenhancement with engorged Vasa recta and very mild mesenteric fat stranding. There is also some subtle motion artifact of the small bowel which suggests hyper peristalsis. Small volume free fluid is present adjacent to 2 loops of small bowel in the right hemipelvis adjacent to the uterus. There is a large volume of formed stool throughout the colon. No colonic wall thickening. No pneumoperitoneum. Nodes and vessels: No threshold enlarged mesenteric or retroperitoneal lymph node. Diffusely atherosclerotic abdominal aorta without aneurysm. Miscellaneous: No ventral hernias. PELVIS: Genitourinary: Bladder wall thickness is normal. Miscellaneous: No inguinal hernias or adenopathy. Bones: No suspicious bony lesions. No vertebral body compression fractures. Extensive degenerative changes in the inferior thoracic spine and in the lumbar spine. IMPRESSION: Findings suggestive of small bowel enteritis/gastroenteritis. Clinical follow-up is recommended to ensure resolution. Dictated by: Nikhil Helton M.D. on 10/04/2019 at 21:05 Approved by: Nikhil Helton M.D. on 10/04/2019 at 21:11
[2019-10-04] MEDS: SODIUM CHLORIDE 0.9% 1,000 ML 500 ML IV (19:37)
[2019-10-04] MEDS: POTASSIUM CHLORIDE 40 MEQ in SODIUM CHLORIDE 0.9% 500 ML 130 ML IV (20:52)
--- NOTE | 2019-10-04 21:00 | PC.NURSE ---
Patient complaining potassium IV infusion burning. Rate lowered to 100ml/hr. Cookie MCDONOUGH cosigner on rate change in MAR.
[2019-10-04 21:48] LABS: Bacteria Urine None Seen
[2019-10-04 21:54] LABS: Appearance Urine UA CLEAR; Bilirubin Urine UA NEGATIVE (NEGATIVE); Color Urine UA YELLOW; Glucose Urine UA NEGATIVE (Negative); Ketones Urine UA NEGATIVE (NEGATIVE); Leukocyte Esterase Urine UA 1+ (NEGATIVE); Nitrite Urine UA NEGATIVE (Negative); Occult Blood Urine UA 2+ (Negative); Protein Urine UA NEGATIVE (Negative); Specific Gravity Urine UA <=1.005 (1.000-1.035); Urobilinogen Urine UA 0.2 E.U./dL (0.2)
[2019-10-04] MEDS: SODIUM CHLORIDE 0.9% 1,000 ML 125 ML IV (22:03)
[2019-10-04 22:23] LABS: pH Urine UA 7.5 (4.5-8.0)
[2019-10-04 22:25] LABS: Culture Indicated Urine Specimen Cultured; RBC Urine 1-5/HPF (0-5/HPF); WBC Urine 1-5/HPF (0-5/HPF)
[2019-10-05] MEDS: ONDANSETRON 4 MG ODT PREPACK 1 BOTTLE MISC (00:04)
== END 2019-10-05 00:23 | disposition home or self-care (01) ==
PROVIDERS: Emergency Provider Emergency Medicine; PCP Family Medicine; Referring Provider Family Medicine
DX: E87.6 Hypokalemia (principal); R10.84 Generalized abdominal pain; R11.2 Nausea with vomiting, unspecified
CPT/HCPCS: 36415; 74177; 80053; 81001; 83690; 85025; 85610; 85730; 87086; 93005; 93010; 96365; 96366; 99284; J2405; J3480; Q9967

== ENCOUNTER → 2019-10-07 10:29 | Outpatient (CLI) | payer MEDICARE, OTHER, SELFPAY ==
[2019-10-07 11:11] LABS: BUN Creatinine Ratio 27.1 (6-22); Blood Urea Nitrogen 19 mg/dL (7-17); Calcium 8.9 mg/dL (8.4-10.2); Carbon Dioxide 35 mmol/L (22-32); Chloride 99 mmol/L (98-107); Creatine Kinase 39 U/L (30-135); Estimated Glomerular Filt Rate > 60.0 mL/min (>60); Glucose 83 mg/dL (80-110); HEMOLYSIS < 15 (0-50); Magnesium 2.3 mg/dL (1.6-2.3); Potassium 4.3 mmol/L (3.4-5.1); Sodium 137 mmol/L (137-145)
[2019-10-07 11:22] LABS: Troponin I 0.043 ng/mL (0.01-0.034)
== END ==
PROVIDERS: PCP Family Medicine; Referring Provider Internal Medicine Cardiovascular Disease; Visit Provider Internal Medicine Cardiovascular Disease
DX: I10 Essential (primary) hypertension (principal); E87.6 Hypokalemia; R94.31 Abnormal electrocardiogram [ECG] [EKG]
CPT/HCPCS: 36415; 80048; 82550; 83735; 84484

== ENCOUNTER → 2020-08-03 09:44 | Outpatient (CLI) | payer MEDICARE, OTHER, SELFPAY ==
--- NOTE | 2020-08-03 | DI.RAD.S_ITS ---
PROCEDURE: XR THORACIC SPINE 2V INDICATIONS: back and hip pain TECHNIQUE: 3 views of the thoracic spine were acquired. COMPARISON: [facility], CT, CT ABDOMEN PELVIS W CON, 10/04/2019, 20:27. [facility], CR, XR CHEST 2 VIEWS, 05/02/2020, 18:19. [facility], CT, CT THORACIC SPINE WO CON, 08/23/2018, 10:22. [facility], CR, XR THORACIC SPINE 3V, 12/28/2018, 11:01. FINDINGS: Bones: T7 compression fracture demonstrates no definite change in height since 05/02/20. The remaining vertebral body heights appear preserved. Diffuse discogenic changes and facet arthropathy. T12 fracture is seen on the AP view only. Soft tissues: Dual lead cardiac pacer noted. IMPRESSION: Unchanged T7 compression fracture since 05/02/20. Mild T12 compression fracture although only seen on the frontal view although probably unchanged. Further evaluation with MRI could be performed as clinically warranted. Diffuse spondylitic changes and facet arthropathy. Dictated by: Cooper Boyd M.D. on 08/03/2020 at 16:31 Approved by: Cooper Boyd M.D. on 08/03/2020 at 16:35
--- NOTE | 2020-08-03 | DI.RAD.S_ITS ---
PROCEDURE: XR HIP W PEL IF DONE [place] MIN 4V INDICATIONS: back and hip pain TECHNIQUE: AP pelvis with lateral view(s) of the right and left hip(s). COMPARISON: [facility], , XR HIP W PEL IF DONE RT 2V, 05/14/2018, 11:37. FINDINGS: Bones: Lumbar spondylosis and facet arthropathy. Mild bilateral hip joint degeneration, grossly unchanged. Scattered degenerative subchondral sclerosis and spurring. No acute fracture. Incidentally noted left os acetabulum. Soft tissues: The visualized bowel gas pattern is normal. No suspicious soft tissue calcifications. IMPRESSION: Mild bilateral hip joint degeneration which appears unchanged on the right since 05/14/18. Dictated by: Cooper Boyd M.D. on 08/03/2020 at 12:12 Approved by: Cooper Boyd M.D. on 08/03/2020 at 12:13
--- NOTE | 2020-08-03 | DI.RAD.S_ITS ---
PROCEDURE: XR LUMBAR SPINE 2-3V INDICATIONS: back and hip pain TECHNIQUE: 3 views of the lumbar spine were acquired. COMPARISON: [facility], CT, CT ABDOMEN PELVIS W CON, 10/04/2019, 20:27. [facility], CR, L-SPINE 2-3 VIEWS, 09/02/2011, 13:24. FINDINGS: Bones: Mild T12 compression fracture probably unchanged. Straightening of the normal lordotic curvature. Severe narrowing of the L2-L3 and L3-L4 disc space. Diffuse mild to moderate narrowing of the remaining lumbar disc spaces. Multilevel degenerative endplate sclerosis and spurring. Diffuse facet arthropathy. Soft tissues: Overlying bowel gas pattern is normal. No suspicious soft tissue calcifications. IMPRESSION: Multilevel lumbar spondylosis most pronounced at L2-L3 and L3-L4. Facet arthropathy. Mild T12 compression fracture which is grossly unchanged. Dictated by: Cooper Boyd M.D. on 08/03/2020 at 16:35 Approved by: Cooper Boyd M.D. on 08/03/2020 at 16:37
== END ==
PROVIDERS: PCP Family Medicine; Referring Provider Family Medicine; Visit Provider Family Medicine
DX: S22.060D Wedge compression fracture of T7-T8 vertebra, subsequent encounter for fracture with routine healing (principal); M47.24 Other spondylosis with radiculopathy, thoracic region; M47.26 Other spondylosis with radiculopathy, lumbar region; M54.5 Low back pain; M25.551 Pain in right hip; M16.0 Bilateral primary osteoarthritis of hip
CPT/HCPCS: 72070; 72100; 73522

== ENCOUNTER → 2020-10-30 11:31 | Outpatient (CLI) | payer MEDICARE, OTHER, SELFPAY ==
[2020-10-30 16:00] LABS: COVID19 -Nasal RAPID Negative (Negative)
== END ==
PROVIDERS: PCP Family Medicine; Visit Provider Nurse Practitioner Family
DX: Z01.812 Encounter for preprocedural laboratory examination (principal); Z20.822 Contact with and (suspected) exposure to COVID-19
CPT/HCPCS: 87635; C9803

== ENCOUNTER 2020-10-31 07:52 | Day surgery (SDC) | payer MEDICARE, OTHER, SELFPAY ==
[2020-10-31 08:30] VITALS: BP 163/81; PULSE 60; RESP 16; TEMP 36.6; O2SAT 98; BMI 20.7
[2020-10-31] MEDS: PROPARACAINE 0.5% OPHTH SOL 2 DROPS EYE-OP (08:46)
[2020-10-31] MEDS: CATARACT EYE COMPOUND (10 DROPS/SYRINGE) 3 DROPS EYE-OP (09:05)
--- NOTE | 2020-10-31 09:33 | PM.PREOP ---
Pre-operative Note Interval Note History & Physical reviewed/Exam performed by Physician: Yes Changes to H&P: No
--- NOTE | 2020-10-31 09:33 | PM.OP.1 ---
Operative Date/Time/Diagnoses Pre-op diagnosis: Nuclear cataract right eye Procedure & Clinicians Procedure: Cataract Surgery Same procedure as scheduled: Yes Surgeon: Cale Toribio Anesthesia Type: MAC +/- and Sedation Operative Notes Procedure in detail: Patient brought to the operating suite. Tetracaine drops placed in the right eye. Patient was prepped and draped in sterile manner. Wire lid speculum was placed in the eye. Betadine drops were placed on the eye. This was irrigated. Lidocaine jelly was placed on the eye. A paracentesis port was created with a side-port blade. 0.1 mL 1% preservative free lidocaine was injected into the anterior chamber. The anterior chamber was deepened with viscoelastic. 2.6 mm keratome was used to create a temporal clear corneal incision. Cystotome and Utrata forceps were used to create continuous tear capsulorrhexis. Balanced salt solution was used to hydro dissect the nucleus. The phacoemulsification handpiece was inserted and the nucleus was removed using the stop and chop technique. The irrigation aspiration handpiece was inserted and the remaining cortex was removed. Anterior chamber was deepened with viscoelastic. An Johnson DIB00 intraocular lens with a power of 22.0 was injected into the capsular bag. Irrigation aspiration handpiece was inserted and the remaining viscoelastic was removed. Incision was hydrated with balanced salt solution and found to be leak free with pressure with Weck-Ester sponges. 0.1 mL Vigamox injected anterior chamber. 0.3 mL Kenalog 10 mg was injected subconjunctivally. Lid speculum was removed. The patient left the operating room in excellent condition. Complications: none Post-operative Condition: stable Disposition: same day surgery
[2020-10-31] MEDS: LIDOCAINE 2% (GLYDO) 6 ML GEL TOP (09:53)
[2020-10-31] MEDS: MOXIFLOXACIN INJ 4 MG/0.8 ML VIAL 0.5 MG EYE-OP (09:53)
[2020-10-31] MEDS: HYALURONATE SODIUM 30 MG-10 MG/ML SYRINGES 1 BOX INTRAOCULA (09:53)
[2020-10-31] MEDS: TRIAMCINOLONE 50 MG/5 ML VIAL INJ (09:54)
[2020-10-31] MEDS: PHENYLEPHRINE/LIDOCAINE VIAL (OR) 0.2 ML EYE-OP (09:54)
[2020-10-31] MEDS: TETRACAINE 0.5% OPHTH DROPS 4 ML 2 DROPS EYE-OP (09:54)
[2020-10-31] MEDS: BALANCED SALT IRRIG SOLN NO.2 500 ML, EPINEPHrine 1 MG IRR (09:54)
[2020-10-31 10:18] VITALS: BP 129/67; PULSE 60; RESP 18; TEMP 36.7; O2SAT 99
== END 2020-10-31 10:35 | disposition home or self-care (01) ==
PROVIDERS: PCP Family Medicine; Referring Provider Ophthalmology; Visit Provider Ophthalmology
PROC: (CPT 66984; principal; 2020-10-31 09:45)
DX: H25.11 Age-related nuclear cataract, right eye (principal); Z95.0 Presence of cardiac pacemaker; I25.10 Atherosclerotic heart disease of native coronary artery without angina pectoris; I25.2 Old myocardial infarction; Z79.01 Long term (current) use of anticoagulants
CPT/HCPCS: 66984; J0171; J2250; J3301

== ENCOUNTER → 2020-11-27 10:50 | Outpatient (CLI) | payer MEDICARE, OTHER, SELFPAY ==
--- NOTE | 2020-11-27 | DI.MG.S_ITS ---
BILATERAL DIGITAL SCREENING MAMMOGRAM 3D/2D WITH CAD: 11/27/2020 CLINICAL: Routine screening. Breast cancer. Comparison is made to exams dated: 09/16/2019 mammogram, 08/11/2018 mammogram, 07/31/2017 mammogram, 07/30/2016 mammogram, and 08/02/2015 mammogram - [facility]. There are scattered fibroglandular elements in both breasts. Current study was also evaluated with a Computer Aided Detection (CAD) system. There are benign calcifications in the left breast. There also are benign vascular calcifications in both breasts. Additionally, there are benign post operative findings in the left breast. No significant masses, calcifications, or other findings are seen in either breast. There has been no significant interval change. IMPRESSION: BENIGN There is no mammographic evidence of malignancy. A 1 year screening mammogram is recommended. This exam was interpreted at Station ID: [id number]. NOTE: For mammograms, a report in lay terms will be sent to the patient. Approximately 15% of breast malignancies will not be visualized mammographically. In the management of a palpable breast mass, a negative mammogram must not discourage biopsy of a clinically suspicious lesion. Electronically Signed By: Derick hollingsworth/emerson:11/27/2020 11:23:42 letter sent: Normal Exam ACR BI-RADS Category 2: Benign Finding(s) 3342F
== END ==
PROVIDERS: PCP Family Medicine; Referring Provider Family Medicine; Visit Provider Family Medicine
DX: Z12.31 Encounter for screening mammogram for malignant neoplasm of breast (principal); Z85.3 Personal history of malignant neoplasm of breast
CPT/HCPCS: 77063; 77067

== ENCOUNTER → 2020-11-29 12:50 | Outpatient (CLI) | payer MEDICARE, OTHER, SELFPAY ==
--- NOTE | 2020-11-29 12:52 | DI.CT.S_ITS ---
PROCEDURE: CT LUMBAR SPINE WO CON INDICATIONS: compression fracture of T7-T8 vertebra TECHNIQUE: Noncontrast 3 mm thick sections acquired from the T12 level to the sacrum. Sagittal and coronal reformats were constructed. For radiation dose reduction, the following was used: automated exposure control. COMPARISON: None. FINDINGS: Image quality: Excellent. Bones: No acute vertebral body compression fractures. There is a compression deformity seen involving the central aspect of T12, with an associated Schmorl's node, with 40-50% loss of height centrally. No posterior displacement of fracture fragments can be seen. No suspicious lytic or blastic bony lesions. No pars defects. Mild dextroconvex scoliotic curvature is seen. Minimal grade 1 anterolisthesis is seen at the L2-L3 level. No associated pars defects are seen. T12-L1: The disc height is well preserved. Calcification is seen along the posterior aspect of the annulus fibrosus, as on series 3, image 16 and on series 5, image 32. No significant neural foraminal or central canal narrowing can be seen. L1-L2: The disc height is well preserved. Mild to moderate disc bulge is seen, which is eccentric to the right side. There is moderate bilateral neural foraminal narrowing seen. Mild to moderate central canal narrowing is seen. L2-L3: Moderate to severe loss of disc height and disc signal can be seen at this level. Endplate irregularity and sclerosis can be seen. Bridging endplate osteophytes are seen on the left. Vacuum disc phenomenon is seen at this level. At least moderate disc bulge is seen, which is eccentric to the left side. There is moderate bilateral neural foraminal narrowing seen, left worse than right. At least moderate central canal narrowing can be seen. L3-L4: Moderate to severe loss of disc height is seen, which is worse on the right side. Partially bridging endplate osteophytes are seen on the left and on the right. Vacuum disc phenomenon is seen at this level. Moderate generalized disc bulge is seen. At least moderate bilateral neural foraminal narrowing can be seen. At least moderate central canal narrowing is seen. L4-L5: Jxbj-pt-[id number] loss of disc height is seen on the right side. Vacuum disc phenomenon is seen at this level. At least moderate disc bulge is seen at this level. There is at least moderate bilateral neural foraminal narrowing seen. Moderate to severe central canal narrowing is seen. L5-S1: The disc height is well preserved. Mild to moderate disc bulge is seen. Moderate facet joint hypertrophy is seen. Moderate bilateral neural foraminal narrowing is seen. Moderate central canal narrowing is seen. Soft tissues: No retroperitoneal masses or hematomas. Visualized aorta is normal in caliber. Pacer leads are seen. IMPRESSION: No acute fractures are seen. There is a chronic appearing central compression deformity seen at T12. Degenerative changes are seen, which are worst at L2-L3 and L3-L4. Incidental note is made of: Pacer leads Dictated by: Oswaldo Valenzuela M.D. on 11/29/2020 at 13:38 Approved by: Oswaldo Valenzuela M.D. on 11/29/2020 at 13:43
--- NOTE | 2020-11-29 13:18 | DI.CT.S_ITS ---
PROCEDURE: CT THORACIC SPINE WO CON INDICATIONS: compression fracture of T7-T8 vertebra TECHNIQUE: Noncontrast 3 mm thick sections acquired through the region of interest in the thoracic spine. Sagittal and coronal reformats were then constructed. For radiation dose reduction, the following was used: automated exposure control. COMPARISON: [facility], CR, XR THORACIC SPINE 2V, 08/03/2020, 9:48. [facility], CT, CT LUMBAR SPINE WO CON, 11/29/2020, 13:21. [facility], CT, CT THORACIC SPINE WO CON, 08/23/2018, 10:22. FINDINGS: Image quality: Excellent. Bones: Accentuated thoracic kyphosis is seen. No focal AP alignment abnormality is seen. A T7 anterior wedge deformity is seen, with 40-50% loss of height anteriorly. This is similar to the prior plain film dated 08/03/2020. At the T12 level, there is a central compression deformity, with 20% loss of height at the superior endplate. This is also stable compared to the prior plain film. No acute vertebral body compression fractures. No suspicious sclerotic or lytic bony lesions. Central spinal canal is of normal overall caliber. Soft tissues: No paravertebral masses or hematomas. Visualized posteromedial lungs appear clear. Pacer leads are seen. There is a calcified right perihilar lymph node seen, as on series 2, image 54, which is similar to 2019. Calcified granulomas are also seen with liver. IMPRESSION: Stable T7 and T12 fractures, which are not significantly changed compared to the 08/03/2020 examination. No new fractures are seen. Incidental note is made of: Pacer leads Prior granulomatous exposure. Dictated by: Oswaldo Valenzuela M.D. on 11/29/2020 at 12:52 Approved by: Oswaldo Valenzuela M.D. on 11/29/2020 at 12:56
== END ==
PROVIDERS: PCP Family Medicine; Referring Provider Family Medicine; Visit Provider Family Medicine
DX: S22.088A Other fracture of T11-T12 vertebra, initial encounter for closed fracture (principal); S22.060A Wedge compression fracture of T7-T8 vertebra, initial encounter for closed fracture; M54.50 Low back pain, unspecified; M47.816 Spondylosis without myelopathy or radiculopathy, lumbar region; Z95.0 Presence of cardiac pacemaker
CPT/HCPCS: 72128; 72131

== ENCOUNTER → 2021-09-07 09:50 | Outpatient (CLI) | payer MEDICARE, OTHER, SELFPAY ==
--- NOTE | 2021-09-07 | DI.CT.S_ITS ---
PROCEDURE: CT LUMBAR SPINE WO CON INDICATIONS: Radiculopathy, site unspecified TECHNIQUE: Noncontrast 3 mm thick sections acquired from the T12 level to the sacrum. Sagittal and coronal reformats were constructed. For radiation dose reduction, the following was used: automated exposure control. COMPARISON: [facility], CT, CT LUMBAR SPINE WO CON, 11/29/2020, 13:21. FINDINGS: Image quality: Excellent. Bones: No acute vertebral body compression fractures. There is a stable T12 compression deformity, with 40-50% loss of height centrally. There is an associated Schmorl's node. No suspicious lytic or blastic bony lesions. No pars defects. Minimal anterolisthesis is seen at L2-L3. T12-L1: There is stable calcification along the posterior aspect of the annulus fibrosus, as on series 5, image 30. L1-L2: The disc height is well preserved. Mild generalized disc bulge is seen. There is [id number] right-sided and moderate left-sided neural foraminal narrowing. Mild to moderate central canal narrowing is seen. Stable from the prior study. L2-L3: Moderate to severe loss of disc height can be seen, particularly on the left side. Endplate irregularity and sclerosis can be seen. Bridging endplate osteophytes are seen on the left, as on series 4, image 19. Moderate generalized disc bulge is seen. There is at least moderate bilateral neural foraminal narrowing seen. Moderate central canal narrowing is seen. No significant change from the prior. L3-L4: Moderate to severe loss of disc height can be seen on the right side. Endplate irregularity and sclerosis can be seen. Moderate generalized disc bulge is seen. Mild facet joint hypertrophy is seen. At least moderate bilateral neural foraminal narrowing can be seen. At least moderate central canal narrowing is seen. Stable from the prior study. L4-L5: The disc height is relatively well preserved. Moderate generalized disc bulge is seen. Mild facet joint hypertrophy is seen. Associated hypertrophy of the ligamentum flavum can be seen. There is moderate to severe right-sided and at least moderate left-sided neural foraminal narrowing seen. Moderate to severe central canal narrowing is seen. No significant change from the prior. L5-S1: The disc height is well preserved. Mild generalized disc bulge is seen. At least moderate facet hypertrophy is seen. Moderate bilateral neural foraminal narrowing is seen. Mild to moderate central canal narrowing is seen. Stable from the prior study. Soft tissues: No retroperitoneal masses or hematomas. Visualized aorta is normal in caliber. Pacer leads are partially seen. IMPRESSION: Multiple levels lumbar spine degenerative change are seen, which are not significantly progressed compared to the prior CT examination. Stable chronic T12 central compression deformity. Incidental note is made of: Pacer leads Dictated by: Oswaldo Valenzuela M.D. on 09/07/2021 at 9:47 Approved by: Oswaldo Valenzuela M.D. on 09/07/2021 at 9:53
== END ==
PROVIDERS: PCP Family Medicine; Referring Provider Family Medicine; Visit Provider Family Medicine
DX: M47.26 Other spondylosis with radiculopathy, lumbar region (principal); M47.27 Other spondylosis with radiculopathy, lumbosacral region; Z95.0 Presence of cardiac pacemaker
CPT/HCPCS: 72131

== ENCOUNTER → 2021-09-19 14:36 | Outpatient (CLI) | payer MEDICARE, OTHER, SELFPAY ==
--- NOTE | 2021-09-19 14:39 | DI.ECHO.S_ITS ---
[facility]---------+ [facility] +---------+ : : [address] : : : : [id number] : : : : Phone: [phone]+ Echocardiogram Report + + :Name: LUTHER JOHN Study Date: 09/19/2021 Height: 61 in : :[facility] ReadingLocation: Weight: 119 lb : : Gender: Female BSA: 1.5 m2 : :: 1935 Age: 86 yrs BP: 157/79 mmHg: :Reason For Study: PACEMAKER : :Ordering Physician: FRANKIE, : :FELICIANO LOWE Performed By: Salome Medina : :Referring: FELICIANO DAVID : + + Interpretation Summary The left ventricular cavity is small. The ejection fraction is estimated to be 60-65%. Diastolic parameters suggest a relaxation abnormality of the left ventricle, consistent with probable normal filling pressures. The right ventricle is mildly dilated. The right ventricular systolic function is normal. There is a pacemaker lead in the right ventricle. Pacemaker is a new finding. There is moderate tricuspid regurgitation. Previously mild to moderate TR. The right ventricular systolic pressure is estimated to be at least 25 mmHg based on an estimated right atrial pressure of 3 mm Hg. There is mild luminal irregularity and echogenicity in the abdominal aorta, suggestive of aortic atherosclerotic disease. Mild atherosclerotic plaque(s) in the aortic arch. Procedure: A two-dimensional transthoracic echocardiogram with color flow and Doppler was performed. The study quality was technically adequate. Comparison is made with the echocardiogram of 05/06/2018. The patient has a paced rhythm. The heart rate ranged between 70-71 bpm during the study. Left Ventricle: The left ventricular cavity is small. There is normal left ventricular wall thickness. There is no thrombus. The ejection fraction is estimated to be 60-65%. Septal motion is consistent with conduction abnormality. Diastolic parameters suggest a relaxation abnormality of the left ventricle, consistent with probable normal filling pressures. Right Ventricle: The right ventricle is mildly dilated. There is a pacemaker lead in the right ventricle. The right ventricular systolic function is normal. Atria: The left atrial size is normal. The left atrium has mildly decreased in size since the prior echo exam. Right atrial size is normal. There is no Doppler evidence for an interatrial shunt. Mitral Valve: The mitral valve leaflets appear mildly thickened, but open well. There is mild mitral annular calcification. There is mild mitral regurgitation. Compared to the prior echo study, there has been no change in the severity of mitral regurgitation. Aortic Valve: The aortic valve is trileaflet. The aortic valve opens well. The aortic valve is slightly calcified. There is no aortic valve stenosis. There is trace aortic regurgitation. Tricuspid Valve: The tricuspid valve is normal. There is moderate tricuspid regurgitation. The right ventricular systolic pressure is estimated to be at least 25 mmHg based on an estimated right atrial pressure of 3 mm Hg. Pulmonic Valve: The pulmonic valve leaflets are thin and pliable; valve motion is normal. There is no pulmonic valvular regurgitation. Great Vessels: The aortic root is normal size. The dimensions of the ascending aorta are normal. There is mild luminal irregularity and echogenicity in the abdominal aorta, suggestive of aortic atherosclerotic disease. Mild atherosclerotic plaque(s) in the aortic arch. The IVC is of normal diameter and collapses greater than 50% with a sniff. This suggests a low right atrial pressure of 3 mm Hg. Pericardium/ Pleura There is no pericardial effusion. There is an anterior echo-free space consistent with a fat pad. There is no pleural effusion. MMode/2D Measurements & Calculations LVIDd: 3.5 cm LVOT diam: 2.0 cm LVIDs: 2.3 cm Ao root diam: 2.8 cm FS: 34.7 % asc Aorta Diam: 3.0 cm IVSd: 0.92 cm Ao Arch Diam (Prox Trans): 2.3 cm LVPWd: 0.88 cm LV webster. diameter/BSA (cm/m^2): 2.3 LV sys. diameter/BSA (cm/m^2): 1.5 LA A2 area: 18.7 cm2 RA long axis: 4.9 cm LA A4 area: 12.5 cm2 RA area: 13.2 cm2 LA length (vol): 5.4 cm RA vol: 30.1 ml LA vol: 36.7 ml RA : 19.8 ml/m2 LA vol index: 24.2 ml/m2 IVC diam: 1.3 cm RVD1 (basal): 4.1 cm TAPSE: 1.8 cm Doppler Measurements & Calculations Ao V2 max: 140.1 cm/sec LVOT Max Evaristo: 87.5 cm/sec Ao V2 mean: 100.8 cm/sec LV V1 max P.1 mmHg Ao max P.8 mmHg LV V1 VTI: 16.9 cm Ao mean P.4 mmHg RUBENS(I,D): 1.9 cm2 Ao V2 VTI: 27.2 cm RUBENS(V,D): 2.0 cm2 sev ratio: 0.62 RUBENS indexed to BSA (cm^2/m^2): 1.3 MV E max evaristo: 61.1 cm/sec TR max evaristo: 232.2 cm/sec MV A max evaristo: 77.7 cm/sec TR max P.6 mmHg MV E/A: 0.79 PA V2 max: 62.5 cm/sec Med Peak E' Evaristo: 5.0 cm/sec PA V2 mean: 41.5 cm/sec E/E' med: 12.2 PA mean P.78 mmHg Lat Peak E' Evaristo: 6.2 cm/sec PA pr(Accel): 24.2 mmHg E/E' lat: 9.9 E/e' average: 11.0 MV dec time: 0.32 sec SV(LVOT): 52.7 ml Reading Physician:05:58 PM
== END ==
PROVIDERS: PCP Family Medicine; Referring Provider Nurse Practitioner Family; Visit Provider Nurse Practitioner Family
DX: Z95.0 Presence of cardiac pacemaker (principal); I08.1 Rheumatic disorders of both mitral and tricuspid valves
CPT/HCPCS: 93306

== ENCOUNTER → 2021-12-11 12:57 | Outpatient (CLI) | payer MEDICARE, OTHER, SELFPAY ==
--- NOTE | 2021-12-11 12:58 | DI.MG.S_ITS ---
BILATERAL DIGITAL SCREENING MAMMOGRAM 3D/2D WITH CAD POST LUMPECTOMY: 12/11/2021 CLINICAL: Routine screening. Personal history of left breast cancer. Comparison is made to exams dated: 11/27/2020 mammogram, 08/11/2018 mammogram, and 09/16/2019 mammogram - [facility]. There are scattered areas of fibroglandular density in both breasts (category b / 25%-50% glandular tissue). Current study was also evaluated with a Computer Aided Detection (CAD) system. There are benign calcifications in the left breast. There also are benign vascular calcifications in both breasts. Additionally, there are benign post operative findings in the left breast. No significant masses, calcifications, or other findings are seen in either breast. There has been no significant interval change. IMPRESSION: BENIGN There is no mammographic evidence of malignancy. A 1 year screening mammogram is recommended. This exam was interpreted at Station ID: [id number]. NOTE: For mammograms, a report in lay terms will be sent to the patient. Approximately 15% of breast malignancies will not be visualized mammographically. In the management of a palpable breast mass, a negative mammogram must not discourage biopsy of a clinically suspicious lesion. Electronically Signed By: Evangelista gardner/emerson:12/11/2021 13:42:19 letter sent: Normal Exam ACR BI-RADS Category 2: Benign Finding(s) 3342F
== END ==
PROVIDERS: PCP Family Medicine; Referring Provider Family Medicine; Visit Provider Family Medicine
DX: Z12.31 Encounter for screening mammogram for malignant neoplasm of breast (principal); Z85.3 Personal history of malignant neoplasm of breast
CPT/HCPCS: 77063; 77067

== ENCOUNTER 2022-01-18 11:38 | Emergency (ER) | payer MEDICARE, OTHER, SELFPAY ==
[2022-01-18 11:46] VITALS: BP 153/66; PULSE 76; RESP 14; TEMP 36.3; O2SAT 99; BMI 23.0
--- NOTE | 2022-01-18 19:41 | ED_ITS ---
HPI - Skin/Abscess/Foreign Bdy <Robert Adam PA-C - Last Filed: 01/18/22 19:46> General Chief complaint: Skin/Abscess/Foreign Body Stated complaint: rash on back, spreading Time Seen by Provider: 01/18/22 12:48 Source: patient Mode of arrival: Ambulatory Limitations: no limitations History of Present Illness HPI narrative: 87-year-old female presents to the ED with 2 weeks of left-sided flank rash. Patient states that the rash is painful but not itchy. Patient denies fever, chills, chest pain, shortness of breath, lightheadedness, dizziness, syncope. Related Data Home Medications Medication Instructions Recorded Confirmed apixaban 2.5 mg tablet (Eliquis) 2.5 mg PO BID 10/04/19 10/04/19 carvedilol 3.125 mg tablet 3.125 mg PO BID 10/04/19 10/04/19 chlorthalidone 25 mg tablet 12.5 mg PO DAILY 10/04/19 10/04/19 flecainide 50 mg tablet 50 mg PO BID 10/04/19 10/04/19 furosemide 40 mg tablet 20 mg PO DAILY 10/04/19 10/04/19 Previous Rx's Medication Instructions Recorded oxycodone 5 mg tablet 5 mg PO Q4-6H PRN pain #14 tabs 08/23/18 gabapentin 300 mg capsule See Rx Instructions .Route 01/18/22 .COMPLEX 7 days #24 caps valacyclovir 1 gram tablet 1,000 mg PO Q8H 7 days #21 tabs 01/18/22 Allergies Allergy/AdvReac Type Severity Reaction Status Date / Time naproxen Allergy Verified 08/23/18 08:09 Review of Systems <Robert Adam PA-C - Last Filed: 01/18/22 19:46> Review of Systems ROS Unobtainable: All systems reviewed & are unremarkable except as noted in HPI and below Constitutional Constitutional: Denies chills, Denies fatigue, Denies fever(s), Denies frequent falls, Denies lethargy and Denies weakness Eyes Eyes: Denies change in vision, Denies eye discharge, Denies irritation and Denies loss of vision ENT Ears, Nose, Mouth, and Throat: Denies change in voice, Denies dizziness, Denies neck pain, Denies sore throat and Denies throat swelling Cardiovascular Cardiovascular: Denies chest pain, Denies irregular heart rhythm, Denies lightheadedness, Denies palpitations, Denies dyspnea, Denies dyspnea on exertion and Denies orthopnea Respiratory Respiratory: Denies cough, Denies dyspnea, Denies dyspnea on exertion and Denies wheezing Gastrointestinal Gastrointestinal: Denies abdominal pain, Denies change in bowel habits, Denies diarrhea, Denies nausea and Denies vomiting Genitourinary Genitourinary: Denies hematuria, Denies flank pain, Denies urinary incontinence and Denies urinary urgency Musculoskeletal Musculoskeletal: Denies back pain, Denies muscle weakness, Denies neck pain, Denies numbness and Denies tingling Integumentary/Breasts Skin/Breast: Denies pruritus, Denies erythema, Reports rash, Reports skin pain and Denies wounds Neurologic Neurologic: Denies behavioral changes, Denies confusion, Denies dizziness, Denies frequent falls, Denies loss of vision, Denies numbness, Denies tingling and Denies weakness Psychiatric Psychiatric: Denies anxiety, Denies behavioral changes, Denies confusion, Denies depression, Denies homicidal ideation and Denies suicidal ideation Endocrine Endocrine: Denies fatigue, Denies flushing and Denies palpitations Hematologic/Lymphatic Hematologic/Lymphatic: Denies easy bruising Allergic/Immunologic Allergic/Immunologic: Denies urticaria, Denies throat swelling and Denies wheezing Patient History <Robert Adam PA-C - Last Filed: 01/18/22 19:46> Medical History Atrial fibrillation Pacemaker Surgical History Hx of appendectomy Social History marital status: household members: spouse Smoking Status: Former smoker alcohol intake: never substance use type: does not use Smoking Status: Former smoker Substance Use Type: does not use Exam <Robert Adam PA-C - Last Filed: 01/18/22 19:46> Narrative Exam Narrative: Const General:?cooperative, healthy appearing and comfortable HENWA Head:?normal to inspection Ears:?hearing grossly normal bilaterally Nose:?external nose normal Face and sinus:?normal facial exam and sinuses nontender Mouth:?oral mucosae normal Throat:?posterior oropharynx normal Eyes General:?appearance normal, both eyes and all related structures Neck Neck:?normal visual inspection and no lymphadenopathy noted Resp Effort & Inspection:?normal respiratory effort Auscultation:?clear to auscultation bilaterally Cardio Rate:?regular rate Rhythm:?regular rhythm Integumentary Erythematous, vesicular rash in the left flank that does not cross the midline. Typical of herpes zoster. Neuro General:?patient alert, patient awake and patient oriented x3 Initial Vital Signs Initial Vital Signs: Vital Signs Temperature 97.3 F L 01/18/22 11:46 Pulse Rate 76 01/18/22 11:46 Respiratory Rate 14 01/18/22 11:46 Blood Pressure 153/66 H 01/18/22 11:46 Pulse Oximetry 99 01/18/22 11:46 Oxygen Delivery Method 01/18/22 11:46 <Paulie Fields MD - Last Filed: 01/24/22 08:53> Initial Vital Signs Initial Vital Signs: Vital Signs Temperature 97.3 F L 01/18/22 11:46 Pulse Rate 76 01/18/22 11:46 Respiratory Rate 14 01/18/22 11:46 Blood Pressure 153/66 H 01/18/22 11:46 Pulse Oximetry 99 01/18/22 11:46 Oxygen Delivery Method 01/18/22 11:46 Course <Robert Adam PA-C - Last Filed: 01/18/22 19:46> Vital Signs Vital signs: Vital Signs - 8 hr 01/18/22 11:46 Temperature 97.3 F L Pulse Rate 76 Respiratory Rate 14 Blood Pressure 153/66 H Pulse Oximetry 99 Oxygen Delivery Method Room Air <Paulie Fields MD - Last Filed: 01/24/22 08:53> Vital Signs Vital signs: Vital Signs - 8 hr 01/18/22 11:46 Temperature 97.3 F L Pulse Rate 76 Respiratory Rate 14 Blood Pressure 153/66 H Pulse Oximetry 99 Oxygen Delivery Method Room Air MDM - Skin/Abscess/Foreign Bdy <Robert Adam PA-C - Last Filed: 01/18/22 19:46> MDM Narrative Medical decision making narrative: 87-year-old female presents to the ED with 2 weeks of left-sided flank rash. Physical exam is consistent with shingles. Patient has been prescribed valacyclovir, gabapentin. ED return precautions were discussed with patient. Patient verbalized understanding. Discharge Plan Departure Patient Disposition: Home Clinical Impression: Shingles Instructions: DI for Shingles Activity Restrictions/Additional Instructions: You were evaluated in the ED today for a rash. You have been diagnosed with a shingles infection. You are being prescribed antiviral and a pain medication gabapentin. Please take those medications as prescribed. Please follow-up with your PCP in a week. Return to the ED if you have worsening symptoms, chest pain, shortness of breath. Prescriptions: New valacyclovir 1 gram tablet 1,000 mg PO Q8H 7 Days Qty: 21 0RF gabapentin 300 mg capsule See Rx Instructions .ROUTE .COMPLEX 7 Days Qty: 24 0RF Rx Instructions: day1:300 mg orally;Day2:300mgPO q12h; Day3 onwards: 300mg PO q8hr No Action furosemide 40 mg Tablet 20 mg PO DAILY chlorthalidone 25 mg tablet 12.5 mg PO DAILY carvedilol 3.125 mg tablet 3.125 mg PO BID Label Comments: 2 pills AM, 1 pill PM flecainide 50 mg tablet 50 mg PO BID Label Comments: TAKE 1 TABLET BY MOUTH TWICE DAILY Eliquis 2.5 mg tablet 2.5 mg PO BID oxycodone 5 mg tablet 5 mg PO Q4-6H PRN (Reason: pain) Qty: 14 0RF Referrals: Bishop Hansen MD [Primary Care Provider] - Visit Report Forms: Patient Portal/API <Paulie Fields MD - Last Filed: 01/24/22 08:53> [facility]: I was immediately available in the department for consultation. ?This documentation has been reviewed and I agree with assessment and plan. Supervised by Paulie Fields MD
== END 2022-01-18 13:22 | disposition home or self-care (01) ==
PROVIDERS: Emergency Provider Student in an Organized Health Care Education/Training Program; PCP Family Medicine
DX: B02.9 Zoster without complications (principal)
CPT/HCPCS: 99281

== ENCOUNTER → 2023-04-24 10:11 | Outpatient (CLI) | payer MEDICARE, OTHER, SELFPAY ==
--- NOTE | 2023-04-24 10:18 | DI.RAD.S_ITS ---
PROCEDURE: XR WRIST RT MIN 3V INDICATIONS: RT WRIST PAIN TECHNIQUE: 3 views of the wrist were acquired. COMPARISON: [facility], , WRIST MINIMUM 3 VIEWS LEFT, 08/26/2016, 10:23. FINDINGS: Bones: No fractures or dislocations. No suspicious bony lesions. Radiocarpal degenerative change, with joint space loss. Small osteophyte off the scaphoid. Mild triscaphe joint degenerative arthritis as well as mild 1st carpometacarpal degenerative arthritis. Degenerative arthritis involving the thumb MCP and IP joints. Soft tissues: No suspicious soft tissue calcifications. 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 Dictated by: Darrick Navarrete M.D. on 04/24/2023 at 13:42 Approved by: Darrick Navarrete M.D. on 04/24/2023 at 13:50
== END ==
PROVIDERS: PCP Family Medicine; Referring Provider Family Medicine; Visit Provider Family Medicine
DX: M18.11 Unilateral primary osteoarthritis of first carpometacarpal joint, right hand (principal); M19.031 Primary osteoarthritis, right wrist; M25.531 Pain in right wrist
CPT/HCPCS: 73110

== ENCOUNTER → 2023-06-11 12:11 | Outpatient (CLI) | payer MEDICARE, OTHER, SELFPAY ==
--- NOTE | 2023-06-11 12:13 | DI.RAD.S_ITS ---
PROCEDURE: XR SACRUM COCCYX MIN 2V INDICATIONS: SACRAL PAIN TECHNIQUE: 3 views of the sacrum and coccyx acquired. COMPARISON: None. FINDINGS: Bones: [id number] sacroiliac sclerosis, likely degenerative. No acute displaced fracture identified by radiography. Partially visualized hip degenerative changes. Soft tissues: Pelvic calcifications may represent phleboliths. IMPRESSION: Sacroiliac degenerative changes. If there is high concern for further derangement, consider MRI evaluation. No acute radiographic abnormality. Dictated by: Evangelista Whitehead M.D. on 06/11/2023 at 13:26 Approved by: Evangelista Whitehead M.D. on 06/11/2023 at 13:27
--- NOTE | 2023-06-11 12:13 | DI.RAD.S_ITS ---
PROCEDURE: XR LUMBAR SPINE MIN 4V INDICATIONS: BACK PAIN TECHNIQUE: 5 views of the lumbar spine were acquired, including bilateral oblique views. COMPARISON: [facility], CR, XR LUMBAR SPINE MIN 4V, 11/20/2022, 9:35. [facility], CR, XR LUMBAR SPINE MIN 4V, 09/02/2022, 7:25. FINDINGS: Bones: moderate spondylotic changes. Mild compression deformities of l4 and t12 are similar compared to 11/20/2022. There is straightening of the normal lordosis. No traumatic subluxation. Oblique views are limited by degenerative changes and bowel gas, without definite pars defects. Soft tissues: bilateral hip arthrosis. Moderate fecal loading. IMPRESSION: Similar moderate spondylotic changes and T12 and L4 height loss. If there is high concern for further derangement, consider MRI evaluation. Dictated by: Evangelista Whitehead M.D. on 06/11/2023 at 13:24 Approved by: Evangelista Whitehead M.D. on 06/11/2023 at 13:26
== END ==
PROVIDERS: PCP Family Medicine; Referring Provider Physical Medicine & Rehabilitation; Visit Provider Physical Medicine & Rehabilitation
DX: M48.062 Spinal stenosis, lumbar region with neurogenic claudication (principal); S32.040A Wedge compression fracture of fourth lumbar vertebra, initial encounter for closed fracture; S32.10XA Unspecified fracture of sacrum, initial encounter for closed fracture; M47.814 Spondylosis without myelopathy or radiculopathy, thoracic region; M47.816 Spondylosis without myelopathy or radiculopathy, lumbar region; M47.818 Spondylosis without myelopathy or radiculopathy, sacral and sacrococcygeal region; Z96.643 Presence of artificial hip joint, bilateral
CPT/HCPCS: 72110; 72220